=== PATIENT | female | born 1955 | race Caucasian/White ===

== ENCOUNTER 2017-10-10 10:07 | Emergency (ER) | payer MEDICAID ==
[2017-10-10 10:23] VITALS: BP 143/86
--- NOTE | 2017-10-10 10:39 | EDM.PDOC ---
ED HPI GENERAL MEDICAL PROBLEM - General Chief Complaint: Neuro Symptoms/Deficits Stated Complaint: MEDICAL VIA NORTH Time Seen by Provider: 10/10/17 10:26 Source of Information: Reports: Patient, Family, RN Notes Reviewed History Limitations: Reports: No Limitations - History of Present Illness INITIAL COMMENTS - FREE TEXT/NARRATIVE: 61-year-old female presents emergency department day complaint of left-sided weakness, this is been intermittent for her lasted a couple of minutes and then resolved but this is her third event since Saturday where she had left-sided weakness, left leg still feels heavy and tingling, no other symptoms at this time she does have a history of DVT of which she was on Coumadin for 6 months back in 2013 ABCD2 score is 3 low risk - Related Data Allergies Allergy/AdvReac Type Severity Reaction Status Date / Time codeine Allergy Rash Verified 07/20/16 06:59 penicillin Allergy Rash Verified 07/20/16 06:59 erythromycin base AdvReac Nausea Verified 07/20/16 06:59 tetracycline AdvReac Nausea Verified 07/20/16 06:59 Home Meds: Home Meds Multivitamin [Multivitamins] 1 each PO DAILY 07/19/15 [History] Acetaminophen [Tylenol Extra Strength] 1 - 2 tab PO Q6H PRN 07/18/16 [History] Vitamin B Complex [B Complex] 1 tab PO DAILY 07/18/16 [History] Lisinopril/Hydrochlorothiazide [Lisinopril-Hctz 10-12.5 mg Tab] 1 tab PO DAILY 10/10/17 [History] buPROPion HCl [Wellbutrin SR] 150 mg PO BID 10/10/17 [History] Past Medical History HEENT History: Reports: Impaired Vision Cardiovascular History: Reports: Blood Clots/VTE/DVT, Hypertension Other Cardiovascular History: DVT in 2012 with coumadin therapy Gastrointestinal History: Reports: Diverticulosis, Other (See Below) Other Gastrointestinal History: hernia repair scheduled for 07-20-2016 with RW Genitourinary History: Reports: UTI, 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 Neurological History: Reports: Headaches, Chronic, Migraines Psychiatric History: Reports: Depression Hematologic History: Reports: Anemia, Blood Transfusion(s), Iron Deficiency - Infectious Disease History Infectious Disease History: Reports: Chicken Pox, Measles - Past Surgical History GI Surgical History: Reports: Colonoscopy, Hernia Repair/Other, Small Bowel, Other (See Below) Female Surgical History: Reports: Hysterectomy Musculoskeletal Surgical History: Reports: Ganglion Cyst, Other (See Below) Social & Family History - Tobacco Use Smoking Status *Q: Current Every Day Smoker Years of Tobacco use: 40 Packs/Tins Daily: 1 Used Tobacco, but Quit: No Second Hand Smoke Exposure: Yes - Caffeine Use Caffeine Use: Reports: Coffee - Alcohol Use Days Per Week of Alcohol Use: 4 Number of Drinks Per Day: 2 Total Drinks Per Week: 8 - Recreational Drug Use Recreational Drug Use: No ED ROS GENERAL - Review of Systems Review Of Systems: See Below Constitutional: Reports: No Symptoms HEENT: Reports: No Symptoms Respiratory: Reports: No Symptoms Cardiovascular: Reports: No Symptoms GI/Abdominal: Reports: No Symptoms : Reports: No Symptoms Musculoskeletal: Reports: No Symptoms Skin: Reports: No Symptoms Neurological: Reports: Tingling, Difficulty Walking, Weakness ED EXAM, NEURO - Physical Exam Exam: See Below Text/Narrative:: General: Female, not in any distress, alert and oriented x3 HEENT: head is atraumatic normocephalic, eyes pupils equal round reactive to light, sclera clear no conjunctivitis appreciated, extraocular eye movements intact. Ears tympanic membranes clear and [place]es[place] landmarks and light reflex are present bilaterally canals are clear. Nose no septal deviation, nares are clear, no blood present. Mouth mucosa is moist and pink no erythema or exudate noted in soft palate, tongue is midline uvula is midline, dentition is intact. Neck: Supple no thyromegaly no tracheal deviation. Nodes: Cervical nodes subclavicular nodes nontender no palpable lymphadenopathy noted. Lungs: clear to auscultation bilaterally with symmetrical respirations, no adventitious noise appreciated. CV: Regular rate and rhythm S1 and S2 appreciated no murmurs rubs or gallops noted. Abdomen: Soft, nontender, no palpable masses or organomegaly appreciated, no distention no guarding bowel sounds are present, . Neuro: Cranial nerves II through XII grossly intact graham 5 x 5 in upper and lower extremities no focal neurologic deficit Skin: Warm and dry, intact Extremities: No lower extremity edema appreciated, Course - Vital Signs Last Recorded V/S: Last Vital Signs Temp 98.4 F 10/10/17 10:24 Pulse 79 10/10/17 10:24 Resp 14 10/10/17 10:24 BP 143/86 H 10/10/17 10:24 Pulse Ox - Orders/Labs/Meds Orders: Active Orders 24 hr Category Date Time Status EKG Documentation Completion [RC] ASDIRECTED Care 10/10/17 10:36 Active EKG 12 Lead [EK] Urgent Ther 10/10/17 10:35 Ordered Labs: Laboratory Tests 10/10/17 10/10/17 Range/Units 10:50 10:50 WBC 7.6 (4.5-11.0) K/uL RBC 4.48 (3.30-5.50) M/uL Hgb 12.9 D (12.0-15.0) g/dL Hct 40.0 (36.0-48.0) % MCV 89 (80-98) fL MCH 29 (27-31) pg MCHC 32 (32-36) % Plt Count 304 (150-400) K/uL Neut % (Auto) 56 (36-66) % Lymph % (Auto) 33 (24-44) % [place] % (Auto) 8 H (2-6) % Eos % (Auto) 2 (2-4) % Baso % (Auto) 1 (0-1) % ESR 38 H (0-25) mm/hr Sodium 137 L (140-148) mmol/L Potassium 4.7 (3.6-5.2) mmol/L Chloride 101 (100-108) mmol/L Carbon Dioxide 28 (21-32) mmol/L Anion Gap 12.7 (5.0-14.0) mmol/L BUN 13 (7-18) mg/dL Creatinine 1.0 (0.6-1.0) mg/dL Est Cr Clr Drug Dosing 56.71 mL/min Estimated GFR (MDRD) 57 L (>60) Glucose 97 (74-106) mg/dL Calcium 9.6 D (8.5-10.1) mg/dL Total Bilirubin 0.4 (0.2-1.0) mg/dL AST 17 (15-37) U/L ALT 20 (12-78) U/L Alkaline Phosphatase 98 D (46-116) U/L Total Protein 7.9 (6.4-8.2) g/dL Albumin 3.8 (3.4-5.0) g/dL Globulin 4.1 H (2.3-3.5) g/dL Albumin/Globulin Ratio 0.9 L (1.2-2.2) Departure - Departure Time of Disposition: 12:45 Disposition: Home, Self-Care 01 Condition: Good Clinical Impression: Left-sided weakness - Discharge Information Referrals: PCP,None [Primary Care Provider] - Forms: ED Department Discharge Additional Instructions: recommend starting an aspirin, continue with your blood pressure medications, given appointment with your primary care provider October 14 at noon, recommend further evaluation including MRI and carotid ultrasound, please call return to the emergency department with worsening of symptoms - My Orders Last 24 Hours: My Active Orders 10/10/17 10:35 EKG 12 Lead [EK] Urgent 10/10/17 10:36 EKG Documentation Completion [RC] ASDIRECTED - Assessment/Plan Last 24 Hours: My Active Orders 10/10/17 10:35 EKG 12 Lead [EK] Urgent 10/10/17 10:36 EKG Documentation Completion [RC] ASDIRECTED Plan: Assessment Acuity = acute Site and laterality = left-sided weakness with complete resolution of symptoms Etiology = unclear etiology Manifestations = none Location of injury = Home Lab values = CBC, CMP unremarkable ESR mildly elevated 38, EKG demonstrates a sinus rhythm CT scan of the head is negative for any acute abnormality, review echocardiogram done on Saturday shows ejection fraction 60% with moderate hypertrophy of the left ventricle Plan I did review lab work CT scan echocardiogram results with her I was able to secure an appointment with her primary care provider October 14 at noon 3 days from now, will start an aspirin her ABCD square score was low, recommend further evaluation with an MRI no appointments were available in the next 2 days as well as carotid ultrasound to complete the workup for TIA, Patient was in agreement with the plan all questions were answered, they were instructed to return to the emergency department or call for worsening symptoms. This note was dictated using [employer] voice recognition software please call with any questions.
--- NOTE | 2017-10-10 11:49 | CT ---
Head wo Cont Total DLP 732 mGycm. INDICATION: Intermittent left-sided weakness COMPARISON: None. FINDINGS: No acute intracranial hemorrhage, mass, or edema. Minimal low attenuation in the periventri cular white matter is nonspecific. Ventricular size is within normal limits. Soft tissues are unremar kable. Remainder negative. IMPRESSION: No acute intracranial abnormality.
== END 2017-10-10 12:57 | disposition home or self-care (01) ==
LOC: JP.ED 10:07
DX: R53.1 Weakness (principal); I10 Essential (primary) hypertension; F32.9 Major depressive disorder, single episode, unspecified; F17.210 Nicotine dependence, cigarettes, uncomplicated; Z79.899 Other long term (current) drug therapy; Z88.0 Allergy status to penicillin; Z88.1 Allergy status to other antibiotic agents; Z88.5 Allergy status to narcotic agent
CPT/HCPCS: 36415; 70450; 70450-26; 80053; 85025; 85651; 93005; 99285-25

== ENCOUNTER 2017-11-02 09:45 | Emergency (ER) | payer MEDICAID ==
--- NOTE | 2017-11-02 10:25 | EDM.PDOC ---
ED HPI GENERAL MEDICAL PROBLEM - General Chief Complaint: Respiratory Problem Stated Complaint: MEDICAL VIA NORTH Time Seen by Provider: 11/02/17 10:05 Source of Information: Reports: Patient, EMS, Family History Limitations: Reports: No Limitations - History of Present Illness INITIAL COMMENTS - FREE TEXT/NARRATIVE: 61-year-old female who is been developing some cold symptoms over the past couple of days had a coughing spell that "wouldn't quit", felt like her throat was tightening and then became short of breath and couldn't breathe. EMS was called. Because of the significant appearance of the patient at albuterol nebulizer along with CPAP was given to the patient initially. On arrival to the emergency room no further treatment was needed. O2 saturations were 100%, the patient was still anxious and had a slight stridorous sound to her breathing. She denied any pain, she may have had some intermittent low-grade fevers over the past several days along with a cough and runny nose. Symptoms started fairly suddenly this morning after company arrived which made her anxious. Onset: Sudden Severity: Moderate Associated Symptoms: Reports: Cough, Fever/Chills, Shortness of Breath. 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 (see below) Other Treatments GANG VIBRATOR OPERATOR: ALBUTEROL NEB PER EMS - Related Data Allergies Allergy/AdvReac Type Severity Reaction Status Date / Time aspirin Allergy Hives Verified 11/02/17 10:03 codeine Allergy Rash Verified 11/02/17 10:03 penicillin Allergy Rash Verified 11/02/17 10:03 erythromycin base AdvReac Nausea Verified 11/02/17 10:03 tetracycline AdvReac Nausea Verified 11/02/17 10:03 Home Meds: Home Meds Multivitamin [Multivitamins] 1 each PO DAILY 07/19/15 [History] Acetaminophen [Tylenol Extra Strength] 1 - 2 tab PO Q6H PRN 07/18/16 [History] Vitamin B Complex [B Complex] 1 tab PO DAILY 07/18/16 [History] Lisinopril/Hydrochlorothiazide [Lisinopril-Hctz 10-12.5 mg Tab] 1 tab PO DAILY 10/10/17 [History] buPROPion HCl [Wellbutrin SR] 150 mg PO BID 10/10/17 [History] Past Medical History HEENT History: Reports: Impaired Vision Cardiovascular History: Reports: Blood Clots/VTE/DVT, Hypertension Other Cardiovascular History: DVT in 2013 with coumadin therapy Gastrointestinal History: Reports: Diverticulosis, Other (See Below) Other Gastrointestinal History: hernia repair scheduled for 07-20-2016 with RW Genitourinary History: Reports: UTI, 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 Neurological History: Reports: Headaches, Chronic, Migraines Psychiatric History: Reports: Depression Hematologic History: Reports: Anemia, Blood Transfusion(s), Iron Deficiency - Infectious Disease History Infectious Disease History: Reports: Chicken Pox, Measles - Past Surgical History GI Surgical History: Reports: Colonoscopy, Hernia Repair/Other, Small Bowel, Other (See Below) Female Surgical History: Reports: Hysterectomy Musculoskeletal Surgical History: Reports: Ganglion Cyst, Other (See Below) Social & Family History - Tobacco Use Smoking Status *Q: Unknown Ever Smoked Years of Tobacco use: 40 Packs/Tins Daily: 1 Used Tobacco, but Quit: No Second Hand Smoke Exposure: Yes - Caffeine Use Caffeine Use: Reports: Coffee - Alcohol Use Days Per Week of Alcohol Use: 4 Number of Drinks Per Day: 2 Total Drinks Per Week: 8 - Recreational Drug Use Recreational Drug Use: No ED ROS GENERAL - Review of Systems Review Of Systems: See Below Constitutional: Reports: Fever, Chills, Malaise. Denies: Weakness HEENT: Reports: Rhinitis Respiratory: Reports: Shortness of Breath, Cough. Denies: Sputum GI/Abdominal: Denies: Abdominal Pain, Nausea, Vomiting Skin: Reports: No Symptoms Neurological: Denies: Headache Psychiatric: Reports: Anxiety ED EXAM, GENERAL - Physical Exam Exam: See Below Exam Limited By: No Limitations General Appearance: Alert, No Apparent Distress, Anxious Nose: Clear Rhinorrhea Throat/Mouth: Normal Inspection Respiratory/Chest: No Respiratory Distress, Lungs Clear Cardiovascular: Regular Rate, Rhythm Neurological: Alert, Oriented Psychiatric: Anxious Skin Exam: Warm, Dry Course - Vital Signs Last Recorded V/S: Last Vital Signs Temp 98.4 F 11/02/17 11:19 Pulse 78 11/02/17 10:04 Resp 15 11/02/17 11:19 BP 130/65 11/02/17 11:19 Pulse Ox 97 11/02/17 11:19 - Orders/Labs/Meds Orders: Active Orders 24 hr Category Date Time Status Chest 2V [CR] Routine Exams 11/02/17 10:18 Taken - Re-Assessments/Exams Free Text/Narrative Re-Assessment/Exam: 11/02/17 10:25 Influenza antigens were obtained as well as a two-view chest x-ray. 11/02/17 11:04 Influenza antigens were negative. Chest x-ray was normal. Over the next 30 minutes the patient calm down and normalized. No further treatment was necessary. Departure - Departure Time of Disposition: 11:20 Disposition: Home, Self-Care 01 Condition: Good Clinical Impression: Croup - Discharge Information Instructions: Shortness of Breath, [id number] Referrals: PCP,None [Ordering Only Provider] - Forms: ED Department Discharge Care Plan Goals: Rest today, continue your regular medications and increase activity as tolerated. Try cool air if symptoms recur and return to the emergency room if not improving. - My Orders Last 24 Hours: My Active Orders 11/02/17 10:18 Chest 2V [CR] Routine - Assessment/Plan Last 24 Hours: My Active Orders 11/02/17 10:18 Chest 2V [CR] Routine
[2017-11-02 11:20] VITALS: BP 130/65
--- NOTE | 2017-11-05 08:47 | CR ---
Chest 2V INDICATION: dyspnea COMPARISON: 04/18/2015 FINDINGS: Two views. Heart size normal. Lungs are clear. No infiltrate or pleural effusion. No sig ns of pulmonary edema. IMPRESSION: Negative chest.
== END 2017-11-02 11:21 | disposition home or self-care (01) ==
LOC: JP.ED 09:45
DX: J05.0 Acute obstructive laryngitis [croup] (principal); I10 Essential (primary) hypertension; Z88.6 Allergy status to analgesic agent; Z88.5 Allergy status to narcotic agent; Z88.0 Allergy status to penicillin; Z88.1 Allergy status to other antibiotic agents; Z79.899 Other long term (current) drug therapy
CPT/HCPCS: 71020; 71020-26; 87804; 99285

== ENCOUNTER 2018-11-14 19:00 | Inpatient (IN) | payer MEDICAID ==
--- NOTE | 2018-11-14 19:18 | EDM.PDOC ---
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 Testing is planned, however today she started draining copious purulent material from her abdomen. Her pain is persistent but stable. Onset: Sudden (Drainage started suddenly within the last hour) abd incision Pain Score (Numeric/FACES): 5 - Related Data Allergies Allergy/AdvReac Type Severity Reaction Status Date / Time codeine Allergy Rash Verified 11/14/18 19:13 hydrocodone Allergy Rash Verified 11/14/18 19:13 penicillin Allergy Rash Verified 11/14/18 19:13 erythromycin base AdvReac Nausea Verified 11/14/18 19:13 tetracycline AdvReac Nausea Verified 11/14/18 19:13 Home Meds: Home Meds Acetaminophen [Tylenol Extra Strength] 1 - 2 tab PO Q6H PRN 07/18/16 [History] Carvedilol [Coreg] 3.125 mg PO BID 09/17/18 [History] Clopidogrel [Plavix] 75 mg PO DAILY 09/17/18 [History] amLODIPine Besylate [Norvasc] 10 mg PO DAILY 09/17/18 [History] atorvaSTATin [Lipitor] 40 mg PO BEDTIME 09/17/18 [History] Aspirin [Halfprin] 81 mg PO BEDTIME 09/19/18 [History] Ibuprofen [Advil] 400 mg PO ASDIRECTED PRN 10/08/18 [History] HYDROmorphone [Dilaudid] 2 - 4 mg PO Q4H PRN #40 tablet 10/20/18 [Rx] Ondansetron [Zofran ODT] 4 mg PO Q4H PRN #30 tab.dis 10/20/18 [Rx] ALPRAZolam [Alprazolam] 0.25 mg PO ASDIRECTED 11/14/18 [History] Past Medical History HEENT History: Reports: Impaired Vision Cardiovascular History: Reports: Blood Clots/VTE/DVT, CAD, Hypertension Other Cardiovascular History: DVT in 2012 with coumadin therapy.Presently taking plavix off x 7 days. 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 Neurological History: Reports: TIA Psychiatric History: Reports: Depression Hematologic History: Reports: Anemia, Blood Transfusion(s), Iron Deficiency Dermatologic History: Reports: None Other Dermatologic History: right rash - Infectious Disease History Infectious Disease History: Reports: Chicken Pox, Measles - Past Surgical History HEENT Surgical History: Reports: None Cardiovascular Surgical History: Reports: None Respiratory Surgical History: Reports: None GI Surgical History: Reports: Colonoscopy, Hernia Repair/Other, Small Bowel, Other (See Below) Female Surgical History: Reports: Section, Hysterectomy Musculoskeletal Surgical History: Reports: Ganglion Cyst Social & Family History - Family History Family Medical History: Noncontributory - Caffeine Use Caffeine Use: Reports: Coffee, Soda ED ROS GENERAL - Review of Systems Review Of Systems: See Below Constitutional: Denies: Fever, Malaise, Decreased Appetite (Appetite is good) HEENT: Reports: No Symptoms Respiratory: Denies: Shortness of Breath Cardiovascular: Denies: Chest Pain GI/Abdominal: Reports: Abdominal Pain. Denies: Nausea, Vomiting Skin: Reports: Pallor Neurological: Denies: Headache ED EXAM, GI/ABD - Physical Exam Exam: See Below Exam Limited By: No Limitations General Appearance: Alert, No Apparent Distress (Looks uncomfortable but not distressed) Eyes: Bilateral: Pale Conjunctiva Neck: Supple Respiratory/Chest: Lungs Clear Cardiovascular: Regular Rate, Rhythm GI/Abdominal Exam: Other (Several drainage tubes are present, the midline incision is draining copious yellowish malodorous material. She is tender to palpation across the upper abdomen.) Extremities: Other (Superficial excoriations on the lower legs). No: Pedal Edema Neurological: Alert, Oriented Course - Vital Signs Last Recorded V/S: Last Vital Signs Temp 99.3 F 11/14/18 21:02 Pulse 79 11/14/18 21:02 Resp 16 11/14/18 21:02 BP 127/67 11/14/18 21:02 Pulse Ox 96 11/14/18 21:14 - Orders/Labs/Meds Orders: Active Orders 24 hr Category Date Time Status Lactated Ringers [Ringers, Lactated] 1,000 ml Med 11/14/18 19:45 Active IV ASDIRECTED Medication Orders Diphenhydramine HCl (Benadryl) 25 - 50 mg IVPUSH Q4H PRN PRN Reason: Itching Last Admin: 11/14/18 21:52 Dose: 25 mg Hydromorphone HCl (Dilaudid Manager Customer Service 15 Mg In Ns 30 Ml) 0 mg IV ASDIRECTED PRN; Protocol PRN Reason: Pain Last Admin: 11/14/18 21:02 Dose: 15 mg Lactated Ringer's (Ringers, Lactated) 1,000 mls @ 250 mls/hr IV ASDIRECTED CURRY Last Admin: 11/14/18 19:57 Dose: 250 mls/hr Dextrose/Lactated Ringer's (Dextrose 5%-Lactated Ringers) 1,000 mls @ 250 mls/ hr IV ASDIRECTED CURRY Last Admin: 11/14/18 21:01 Dose: 250 mls/hr Lorazepam (Ativan) 0.5 mg IVPUSH Q2H PRN PRN Reason: Anxiety Naloxone HCl (Narcan) 0.4 mg IVPUSH Q2M PRN PRN Reason: Respiratory Distress Labs: Laboratory Tests 11/14/18 11/14/18 Range/Units 19:49 19:49 WBC 10.2 (4.5-11.0) K/uL RBC 4.17 (3.30-5.50) M/uL Hgb 11.6 L (12.0-15.0) g/dL Hct 35.6 L (36.0-48.0) % MCV 85 (80-98) fL MCH 28 (27-31) pg MCHC 33 (32-36) % Plt Count 463 H (150-400) K/uL Neut % (Auto) 56 (36-66) % Lymph % (Auto) 33 (24-44) % [place] % (Auto) 7 H (2-6) % Eos % (Auto) 3 (2-4) % Baso % (Auto) 1 (0-1) % Sodium 137 L (140-148) mmol/L Potassium 3.4 L (3.6-5.2) mmol/L Chloride 98 L (100-108) mmol/L Carbon Dioxide 27 (21-32) mmol/L Anion Gap 15.4 H (5.0-14.0) mmol/L BUN 16 (7-18) mg/dL Creatinine 0.8 (0.6-1.0) mg/dL Est Cr Clr Drug Dosing 67.29 mL/min Estimated GFR (MDRD) > 60 (>60) Glucose 119 H (74-106) mg/dL Calcium 9.0 (8.5-10.1) mg/dL Total Bilirubin 0.3 (0.2-1.0) mg/dL AST 15 (15-37) U/L ALT 20 (12-78) U/L Alkaline Phosphatase 107 (46-116) U/L Total Protein 7.6 (6.4-8.2) g/dL Albumin 2.7 L (3.4-5.0) g/dL Globulin 4.9 H (2.3-3.5) g/dL Albumin/Globulin Ratio 0.6 L (1.2-2.2) Meds: Medications Generic Name Dose Route Start Last Admin Trade Name Freq PRN Reason Stop Dose Admin Diphenhydramine HCl 25 - 50 mg 11/14/18 21:32 11/14/18 21:52 Benadryl IVPUSH 25 mg Q4H PRN Administration Itching Hydromorphone HCl 0 mg 11/14/18 20:14 11/14/18 21:02 Dilaudid Manager Customer Service 15 Mg In Ns 30 Ml IV 15 mg ASDIRECTED PRN Administration Pain Protocol Lactated Ringer's 1,000 mls @ 250 mls/hr 11/14/18 19:45 11/14/18 19:57 Ringers, Lactated IV 250 mls/hr ASDIRECTED CURRY Administration Dextrose/Lactated Ringer's 1,000 mls @ 250 mls/hr 11/14/18 20:15 11/14/18 21: 01 Dextrose 5%-Lactated Ringers IV 250 mls/hr ASDIRECTED CURRY Administration Lorazepam 0.5 mg 11/14/18 21:31 Ativan IVPUSH Q2H PRN Anxiety Naloxone HCl 0.4 mg 11/14/18 20:14 Narcan IVPUSH Q2M PRN Respiratory Distress 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 Medications Generic Name Dose Route Start Last Admin Trade Name Hu PRN Reason Stop Dose Admin Diphenhydramine HCl 25 mg 11/14/18 19:53 11/14/18 20:01 Benadryl IVPUSH 11/14/18 19:54 25 mg ONETIME ONE Administration Hydromorphone HCl 0.5 mg 11/14/18 19:45 11/14/18 20:06 Dilaudid IVPUSH 11/14/18 19:46 0.5 mg ONETIME ONE Administration - Re-Assessments/Exams Free Text/Narrative Re-Assessment/Exam: 11/14/18 19:44 Discussed her case with Dr. Garcia, he recommended admission with fluids, pain control, and frequent dressing changes. CBC CMP was obtained. 11/14/18 20:25 CBC and CMP were reassuring. Patient was admitted to Dr. Garcia's service. 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
[2018-11-14] MEDS ORDERED: Lactated Ringers 1,000 ML IV SCH (19:45)
[2018-11-14] MEDS ORDERED: HYDROmorphone 0.5 MG/0.5 ML Syringe IVPUSH ONE (19:45)
[2018-11-14] MEDS ORDERED: diphenhydrAMINE 50 MG/ML SDV IVPUSH ONE (19:53)
[2018-11-14] MEDS ORDERED: HYDROmorphone/Normal Saline 15 MG/30 ML PCA IV PRN (20:14)
[2018-11-14] MEDS ORDERED: Naloxone 0.4 MG/ML SDV IVPUSH PRN (20:14)
[2018-11-14] MEDS: Dextrose 5%-Lactated Ringers 1,000 ML IV SCH (21:01)
[2018-11-14] MEDS ORDERED: LORazepam 2 MG/ML SDV IVPUSH PRN (21:31)
[2018-11-14] MEDS: diphenhydrAMINE 50 MG/ML SDV IVPUSH PRN (21:52)
[2018-11-15] MEDS: Dextrose 5%-Lactated Ringers 1,000 ML IV SCH ×4 (00:55→21:29)
[2018-11-15] MEDS ORDERED: Acetaminophen 500 MG Tab PO PRN (07:58)
[2018-11-15] MEDS ORDERED: Ondansetron 4 MG Tab.DIS PO PRN (07:59)
[2018-11-15] MEDS: diphenhydrAMINE 50 MG/ML SDV IVPUSH PRN ×3 (08:31→18:42)
[2018-11-15] MEDS: Potassium Chloride 20 MEQ Tab.ER PO SCH ×3 (09:11→17:16)
[2018-11-15] MEDS: amLODIPine 10 MG Tab PO SCH (09:11)
[2018-11-15] MEDS: Clopidogrel 75 MG Tab PO SCH (09:12)
[2018-11-15] MEDS: Aspirin 81 MG Tab.EC PO SCH (09:12)
[2018-11-15] MEDS: Carvedilol 3.125 MG Tab PO SCH ×2 (09:12→17:16)
[2018-11-15] MEDS: ALPRAZolam 0.25 MG Tab PO PRN ×3 (10:45→23:55)
[2018-11-15] MEDS: atorvaSTATin 20 MG Tab PO SCH (20:56)
[2018-11-16] MEDS: Dextrose 5%-Lactated Ringers 1,000 ML IV SCH (06:14)
[2018-11-16] MEDS ORDERED: Albuterol/Ipratropium 3.0-0.5 MG/3 ML Neb Soln NEB STA (06:48)
[2018-11-16] MEDS: Carvedilol 3.125 MG Tab PO SCH ×2 (07:00→18:02)
[2018-11-16] MEDS ORDERED: Lidocaine 1% with EPINEPHrine 1:100,000 50 ML MDV ONE (07:10)
[2018-11-16] MEDS ORDERED: Bupivacaine 0.5% 30 ML SDV ONE (07:10)
[2018-11-16] MEDS ORDERED: Propofol 200 MG/20 ML SDV ONE (07:59)
[2018-11-16] MEDS ORDERED: fentaNYL 100 MCG/2 ML SDV ONE (07:59)
[2018-11-16] MEDS ORDERED: Midazolam 1 MG/ML 2 ML SDV ONE (08:00)
[2018-11-16] MEDS: Aspirin 81 MG Tab.EC PO SCH (09:06)
[2018-11-16] MEDS: Clopidogrel 75 MG Tab PO SCH (09:07)
[2018-11-16] MEDS: amLODIPine 10 MG Tab PO SCH (09:07)
[2018-11-16] MEDS: Magnesium Sulfate/Water 2 GM in Premix Bag 1 BAG IV SCH ×3 (10:37→21:00)
[2018-11-16] MEDS: Potassium Chloride 20 MEQ Tab.ER PO SCH ×3 (10:38→18:03)
[2018-11-16] MEDS: diphenhydrAMINE 50 MG/ML SDV IVPUSH PRN ×3 (10:52→23:06)
[2018-11-16] MEDS: ALPRAZolam 0.25 MG Tab PO PRN ×2 (12:58→19:37)
[2018-11-16] MEDS: atorvaSTATin 20 MG Tab PO SCH (20:54)
[2018-11-17] MEDS: Magnesium Sulfate/Water 2 GM in Premix Bag 1 BAG IV SCH (03:32)
[2018-11-17] MEDS: diphenhydrAMINE 50 MG/ML SDV IVPUSH PRN (07:29)
[2018-11-17] MEDS ORDERED: HYDROmorphone 2 MG Tab PO PRN (07:35)
[2018-11-17 08:34] VITALS: BP 108/32
[2018-11-17] MEDS: Aspirin 81 MG Tab.EC PO SCH (08:34)
[2018-11-17] MEDS: Carvedilol 3.125 MG Tab PO SCH (08:34)
[2018-11-17] MEDS: amLODIPine 10 MG Tab PO SCH (08:34)
[2018-11-17] MEDS: Clopidogrel 75 MG Tab PO SCH (08:36)
--- NOTE | 2018-11-17 09:21 | DISCH ---
ADMISSION DIAGNOSES: 1. Fistula of intestine with excessive drainage. 2. Lumbar disk disease. 3. Chronic obstructive pulmonary disease. 4. Depression. 5. History of transient ischemic attack. 6. Diverticulosis. DISCHARGE DIAGNOSES: Small bowel fistulogram and revision of the jejunostomy tube position for a small bowel fistula with migrated jejunostomy tube. HISTORY: Eleonora Batista presented to the emergency room on 11/14/2018 for severe abdominal pain and increasing drainage from her abdominal fistula. After preoperative evaluation and discussion of possible risks and possible complications, she wished to proceed with surgical procedure. HOSPITAL COURSE: Eleonora had her surgery on 11/16/2018. She had no operative complications. On postoperative day #2, 11/17/2018, she was ready to be discharged to home with a wound VAC over that area. OBJECTIVE: GENERAL: Eleonora is a 62-year-old female. VITAL SIGNS: Height is 5 feet 4 inches and weight is 147 pounds. Temperature is 95.3, pulse is 75, respirations are 16, and blood pressure is 138/69. HEENT: Negative. NECK: Supple. HEART: Regular rate and rhythm. PULMONARY: Lungs are clear. ABDOMEN: Bello-Sanchez drains are intact. ASYE drain #1 drained out of 51, and AYSE drain #2 drained out 90. She does have an ostomy bag over that opened fistula, it drained zero. She will be having a wound VAC placed on that area. EXTREMITIES: Without peripheral edema. DISPOSITION: Discharged to home with continuation of Home Health Care. CONDITION: Stable. DISCHARGE MEDICATIONS: Resume home medications of 1. Etizolam 0.25 mg one p.r.n. every 6 hours. 2. Tylenol Extra Strength 1 to 2 tablets every six hours p.r.n. pain. 3. Aspirin 81 mg oral at bedtime. 4. Carvedilol/Coreg 3.125 mg oral twice daily. 5. Plavix 75 mg oral daily. 6. Dilaudid, she states she has enough at home or she will call in if she has any increase in pain. 7. Ibuprofen 400 mg as directed p.r.n. pain. 8. Zofran ODT 4 mg every four hours p.r.n. nausea and vomiting. 9. Norvasc 10 mg oral daily. 10.Lipitor 10 mg oral at bedtime. DISCHARGE FOLLOWUP: Appointment with Srikanth Garcia MD, at [facility] on 11/19/2018 at 8 a.m. to have wound VAC changed and for an appointment. DISCHARGE DIET: Usual diet as tolerated. Drink 8 to 10 glasses of water a day. DISCHARGE ACTIVITY: Other Activity: No lifting greater than 10 pounds for six weeks. Driving: Do not drive while on pain medication. Shower/bathing, may shower. DISCHARGE INSTRUCTIONS: Notify provider if any fever, increased pain, nausea, or vomiting. Wound incision care, keep site clean and dry. Other wound: Strip, empty, drain and measure AYSE drains 4 times a day, and keep record of results and bring to clinic appointments. Use incentive spirometer 10 times every hour while awake.
--- NOTE | 2018-11-17 15:12 | PN ---
DATE OF SERVICE: 11/15/2018 The patient was admitted overnight with some increased drainage from the reopening of the fistula in the middle portion of her midline incision. We to do a fistulogram and we are planning to do that tomorrow. She does not look particularly infected at this point with normal white count and afebrile, so things appear to be reasonably well drained. The jejunostomy tube did pull in a fair bit and we will likely pull that back up snugly tomorrow, which would decrease the amount of drainage. Otherwise, her potassium is marginally low. We will give her some oral KCl today and plan to proceed with a fistulogram tomorrow. Srikanth Garcia MD /[id number]
--- NOTE | 2018-11-17 15:12 | PN ---
DATE OF SERVICE: 11/16/2018 The patient had T-max of 100.4. Vital signs have otherwise been stable. The plan will be to adjust the drain today and we will try to pull up the jejunostomy tube with the balloon inflated and more snugly against the wall of the bowel fluid and then retract the AYSE drain adjacent to the fistula perhaps a centimeter or so to try to get some distraction from that area. As discussed with the patient and , at some point, we may need to do definitive reoperation if small bowel fistula fails to close. Otherwise, continue diet today after the revision of the position of the J tube and drains. Srikanth Garcia MD /[id number]
--- NOTE | 2018-11-25 11:02 | OR ---
DATE OF PROCEDURE: 11/16/2018 PREOPERATIVE DIAGNOSIS: Small bowel fistula. POSTOPERATIVE DIAGNOSIS: Small bowel fistula. PROCEDURE: Small bowel fistulogram ([id number]). ANESTHESIA: Local plus IV sedation. INDICATION FOR PROCEDURE: This is a 62-year-old presenting with an ongoing small bowel fistula and had some drainage through a jejunostomy tube placed through the fistula to try to control the drainage as well as into a Bello-Sanchez drain that is adjacent to the actual fistula site. Plan is to proceed with a fistulogram and then adjustment of the jejunostomy tube and/or drain to try to get better seal on the fistula as well as decrease the amount of distance between the fistula and the Bello-Sanchez drain to facilitate possibly earlier closure. Potential risks including further infection, bleeding, and such were reviewed, and the patient wishes to proceed. DETAILS OF PROCEDURE: The patient was taken to the operating room and placed on the fluoroscopy table and IV sedation was administered. The abdomen was then prepped on the various tube sites and initially a 60% concentrated Renografin solution was injected into the Mcintosh catheter which was being used for the jejunostomy tube and this showed flow bidirectionally within the small bowel, but quite a bit in the way of drainage up into the area adjacent to the fistula and into the adjacent Bello-Sanchez drain. Given this, an additional 1 mL of saline was injected in the jejunostomy tube and then this was pulled up fairly snugly against the abdominal wall. The skin edges at that site were then anesthetized with 1% lidocaine and the tube then sutured there with some 3-0 Vicryl stitch. The drain itself was then moved roughly 1 cm further away from the fistula site and this was also then fixed in position with stitch after anesthetizing the skin at that level as well and dressings were applied. The patient was taken to the recovery room in satisfactory condition. There were no evident complications. Srikanth Garcia MD Job #: [id number]
== END 2018-11-17 10:48 | disposition home health service (06) | DRG 395 ==
LOC: JP.ED 19:00 → JP.MS 20:11
PROVIDERS: ADMIT Surgery; ATTEND Surgery
PROC: BW11YZZ Fluoroscopy of Abdomen and Pelvis using Other Contrast (ICD-10-PCS; principal; 2018-11-16)
DX: K63.2 Fistula of intestine (principal); I10 Essential (primary) hypertension; E87.6 Hypokalemia; I25.10 Atherosclerotic heart disease of native coronary artery without angina pectoris; Z86.718 Personal history of other venous thrombosis and embolism; Z86.73 Personal history of transient ischemic attack (TIA), and cerebral infarction without residual deficits; K57.90 Diverticulosis of intestine, part unspecified, without perforation or abscess without bleeding; J44.9 Chronic obstructive pulmonary disease, unspecified; F32.9 Major depressive disorder, single episode, unspecified; M19.90 Unspecified osteoarthritis, unspecified site; H54.7 Unspecified visual loss; Z88.1 Allergy status to other antibiotic agents; Z88.5 Allergy status to narcotic agent; Z88.0 Allergy status to penicillin; Z79.82 Long term (current) use of aspirin; M51.9 Unspecified thoracic, thoracolumbar and lumbosacral intervertebral disc disorder; I65.23 Occlusion and stenosis of bilateral carotid arteries; R32 Unspecified urinary incontinence
CPT/HCPCS: 36415; 80048; 80053; 83735; 84100; 85025; 85027; 94640; 94762; 96361; 96374; 96375; 99285-25; A9270-GY; J1170; J1200; J2060; J2250; J2704; J3010; J3475; J3490; J7042; J7120; J7620-GY

== ENCOUNTER 2018-12-11 13:06 | Emergency (ER) | payer MEDICAID ==
[2018-12-11] MEDS ORDERED: Sodium Chloride 0.9% 1,000 ML IV SCH (13:45)
[2018-12-11] MEDS ORDERED: Ondansetron 4 MG Tab.DIS PO ONE (13:49)
--- NOTE | 2018-12-11 13:55 | EDM.PDOC ---
ED HPI GENERAL MEDICAL PROBLEM - General Chief Complaint: Gastrointestinal Problem Stated Complaint: ABD PROBLEMS Time Seen by Provider: 12/11/18 13:40 Source of Information: Reports: Patient, Old Records, RN History Limitations: Reports: No Limitations - History of Present Illness INITIAL COMMENTS - FREE TEXT/NARRATIVE: 62 yo female here from home with a large amt of fecal-like drainage from a previous surgical site. Has a surgical drain in place and was seen in the clinic yesterday for increased drainage. Today had a large gush of this same fluid. No fever. Appetite OK. Is followed by Dr. Garcia for this. Here with her . Called the hospital earlier and Dr. Garcia was in surgery. Onset: Sudden Onset Date: 12/11/18 Duration: Minutes:, Waxing/Waning (less now than after the original gush of fluid. ) Location: Reports: Abdomen Quality: Reports: Other (no new pain) Severity: Moderate Improves with: Reports: Other (reduced drainage now that the large gush of fluid has passed. ) Worsens with: Reports: Other (unknown) Context: Reports: Other (See HPI) Associated Symptoms: Reports: No Other Symptoms. Denies: Fever/Chills, Nausea/ Vomiting Treatments OPERATOR: Reports: Other (see below) (Changed dressing) Abdomen Pain Score (Numeric/FACES): 3 - Related Data Allergies Allergy/AdvReac Type Severity Reaction Status Date / Time codeine Allergy Rash Verified 12/11/18 13:29 hydrocodone Allergy Rash Verified 12/11/18 13:29 penicillin Allergy Rash Verified 12/11/18 13:29 erythromycin base AdvReac Nausea Verified 12/11/18 13:29 tetracycline AdvReac Nausea Verified 12/11/18 13:29 Home Meds: Home Meds Acetaminophen [Tylenol Extra Strength] 1 - 2 tab PO Q6H PRN 07/18/16 [History] Carvedilol [Coreg] 3.125 mg PO BID 09/17/18 [History] Clopidogrel [Plavix] 75 mg PO DAILY 09/17/18 [History] amLODIPine Besylate [Norvasc] 10 mg PO DAILY 09/17/18 [History] atorvaSTATin [Lipitor] 40 mg PO BEDTIME 09/17/18 [History] Aspirin [Halfprin] 81 mg PO BEDTIME 09/19/18 [History] Ibuprofen [Advil] 400 mg PO ASDIRECTED PRN 10/08/18 [History] HYDROmorphone [Dilaudid] 2 - 4 mg PO Q4H PRN #40 tablet 10/20/18 [Rx] Ondansetron [Zofran ODT] 4 mg PO Q4H PRN #30 tab.dis 10/20/18 [Rx] ALPRAZolam [Alprazolam] 0.25 mg PO ASDIRECTED 11/14/18 [History] Past Medical History HEENT History: Reports: Impaired Vision Cardiovascular History: Reports: Blood Clots/VTE/DVT, CAD, Hypertension Other Cardiovascular History: DVT in 2012 with coumadin therapy.Presently taking plavix off x 7 days. 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 Neurological History: Reports: TIA Psychiatric History: Reports: Depression Hematologic History: Reports: Anemia, Blood Transfusion(s), Iron Deficiency Dermatologic History: Reports: None Other Dermatologic History: right rash - Infectious Disease History Infectious Disease History: Reports: Chicken Pox, Measles - Past Surgical History HEENT Surgical History: Reports: None Cardiovascular Surgical History: Reports: None Respiratory Surgical History: Reports: None GI Surgical History: Reports: Colonoscopy, Hernia Repair/Other, Small Bowel, Other (See Below) Other GI Surgeries/Procedures: very eventful hernia repair Female Surgical History: Reports: Section, Hysterectomy Musculoskeletal Surgical History: Reports: Ganglion Cyst Social & Family History - Family History Family Medical History: Noncontributory - Tobacco Use Smoking Status *Q: Never Smoker - Caffeine Use Caffeine Use: Reports: Coffee - Recreational Drug Use Recreational Drug Use: No ED ROS GENERAL - Review of Systems Review Of Systems: See Below Constitutional: Reports: No Symptoms HEENT: Reports: No Symptoms Respiratory: Reports: No Symptoms Cardiovascular: Reports: No Symptoms GI/Abdominal: Reports: Other (Fecal-like drainage from surgical wound.) : Reports: No Symptoms Musculoskeletal: Reports: No Symptoms Skin: Reports: No Symptoms Neurological: Reports: No Symptoms ED EXAM, GI/ABD - Physical Exam Exam: See Below Exam Limited By: No Limitations General Appearance: Alert, WD/WN, No Apparent Distress Eyes: Bilateral: Normal Appearance Ears: Normal External Exam, Normal Canal, Hearing Grossly Normal Nose: Normal Inspection, No Blood Throat/Mouth: Normal Inspection, Normal Oropharynx, Normal Voice, No Airway Compromise Head: Atraumatic, Normocephalic Neck: Normal Inspection, Non-Tender Respiratory/Chest: No Respiratory Distress, Lungs Clear, Normal Breath Sounds, No Accessory Muscle Use Cardiovascular: Regular Rate, Rhythm, No Edema GI/Abdominal Exam: Normal Bowel Sounds, Soft, Non-Tender, No Distention, Other ( brownish drainage from abdominal surgical wound.). No: Tender Back Exam: Normal Inspection. No: CVA Tenderness (R), CVA Tenderness (L) Extremities: Normal Inspection, Normal Range of Motion, Non-Tender, No Pedal Edema Neurological: Alert, Oriented, CN II-XII Intact, Normal Cognition, No Motor/ Sensory Deficits Psychiatric: Normal Affect, Normal Mood Skin Exam: Warm, Dry, Intact, Normal Color, No Rash Course - Vital Signs Text/Narrative:: Dr. Garcia called @ 1600h Last Recorded V/S: Last Vital Signs Temp 35.6 C 12/11/18 13:29 Pulse 65 12/11/18 15:17 Resp 16 12/11/18 15:17 BP 137/63 12/11/18 15:17 Pulse Ox 95 12/11/18 15:17 - Orders/Labs/Meds Orders: Active Orders 24 hr Category Date Time Status Abdomen Pelvis wo Cont [CT] Stat Exams 12/11/18 13:38 Taken Sodium Chloride 0.9% [Normal Saline] 1,000 ml Med 12/11/18 13:45 Active IV ASDIRECTED Medication Orders Sodium Chloride (Normal Saline) 1,000 mls @ 500 mls/hr IV ASDIRECTED CURRY Last Admin: 12/11/18 14:34 Dose: 500 mls/hr Labs: Laboratory Tests 12/11/18 12/11/18 12/11/18 Range/Units 13:40 13:54 14:08 WBC 10.6 (4.5-11.0) K/uL RBC 3.37 (3.30-5.50) M/uL Hgb 9.3 L (12.0-15.0) g/dL Hct 29.8 L (36.0-48.0) % MCV 88 (80-98) fL MCH 28 (27-31) pg MCHC 31 L (32-36) % Plt Count 374 (150-400) K/uL Sodium 138 L (140-148) mmol/L Potassium 3.5 L (3.6-5.2) mmol/L Chloride 102 (100-108) mmol/L Carbon Dioxide 26 (21-32) mmol/L Anion Gap 13.5 (5.0-14.0) mmol/L BUN 15 D (7-18) mg/dL Creatinine 0.7 (0.6-1.0) mg/dL Est Cr Clr Drug Dosing 80.01 mL/min Estimated GFR (MDRD) > 60 (>60) Glucose 107 H (74-106) mg/dL Calcium 8.9 (8.5-10.1) mg/dL Urine Color Urine Appearance Clear Urine pH 5.0 (4.5-8.0) Ur Specific [place] 1.005 L (1.008-1.030) Urine Protein Negative (NEGATIVE) mg/dL Urine Glucose (UA) Normal (NEGATIVE) mg/dL Urine Ketones Negative (NEGATIVE) mg/dL Urine Occult Blood Negative (NEGATIVE) Urine Nitrite Negative (NEGATIVE) Urine Bilirubin Negative (NEGATIVE) Urine Urobilinogen Normal (NORMAL) mg/dL Ur Leukocyte Esterase Negative (NEGATIVE) Urine RBC Not seen (0-5) Urine WBC Not seen (0-5) Ur Epithelial Cells Not seen Amorphous Sediment Not seen Urine Bacteria Not seen Urine Mucus Not seen Meds: Medications Generic Name Dose Route Start Last Admin Trade Name Freq PRN Reason Stop Dose Admin Sodium Chloride 1,000 mls @ 500 mls/hr 12/11/18 13:45 12/11/18 14:34 Normal Saline IV 500 mls/hr ASDIRECTED CURRY Administration 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 Medications Generic Name Dose Route Start Last Admin Trade Name Freq PRN Reason Stop Dose Admin Alprazolam 0.25 mg 12/11/18 14:25 12/11/18 14:34 Xanax PO 12/11/18 14:26 0.25 mg NOW ONE Administration Hydromorphone HCl Confirm 12/11/18 14:52 12/11/18 15:17 Dilaudid Administered 12/11/18 14:53 Not Given Dose 0.5 mg .ROUTE .STK-MED ONE Hydromorphone HCl 0.5 mg 12/11/18 15:15 12/11/18 15:17 Dilaudid IVPUSH 12/11/18 15:16 0.5 mg ONETIME ONE Administration Sodium Chloride 74 mls @ 3.5 mls/sec 12/11/18 14:15 Normal Saline IV 12/11/18 14:16 ASDIRECTED CURRY Iopamidol 100 ml 12/11/18 14:10 Isovue-300 (61%) IV 12/12/18 14:11 . DIRECTED PRN RADIOLOGY EXAM Ondansetron HCl 4 mg 12/11/18 13:49 Zofran Odt PO 12/11/18 13:50 ONETIME ONE Sodium Chloride 10 ml 12/11/18 14:15 Saline Flush FLUSH 12/11/18 14:16 ONETIME CURRY - Radiology Interpretation Free Text/Narrative:: CT abd/pelvis with IV/PO contrast-fistuala from small bowel to skin surface. CT Results Date: 12/11/18 Departure - Departure Time of Disposition: 16:20 Disposition: Home, Self-Care 01 Condition: Good Clinical Impression: Small bowel fistula - Discharge Information *PRESCRIPTION DRUG MONITORING PROGRAM REVIEWED*: No *COPY OF PRESCRIPTION DRUG MONITORING REPORT IN PATIENT DINO: No Referrals: PCP,None [Primary Care Provider] - Forms: ED Department Discharge Additional Instructions: Change ostomy bag as needed. F/U with Dr. Garcia at 8 am tomorrow in his office. Return as needed. - My Orders Last 24 Hours: My Active Orders 12/11/18 13:38 Abdomen Pelvis wo Cont [CT] Stat 12/11/18 13:45 Sodium Chloride 0.9% [Normal Saline] 1,000 ml IV ASDIRECTED - Assessment/Plan Last 24 Hours: My Active Orders 12/11/18 13:38 Abdomen Pelvis wo Cont [CT] Stat 12/11/18 13:45 Sodium Chloride 0.9% [Normal Saline] 1,000 ml IV ASDIRECTED
[2018-12-11] MEDS ORDERED: Iopamidol 612 MG/ML 100 ML Bottle IV PRN (14:10)
[2018-12-11] MEDS ORDERED: Sodium Chloride 0.9% 10 ML Syringe FLUSH SCH (14:15)
[2018-12-11] MEDS ORDERED: ALPRAZolam 0.25 MG Tab PO ONE (14:25)
[2018-12-11] MEDS: HYDROmorphone 0.5 MG/0.5 ML Syringe ONE ×2 (14:59→15:17)
[2018-12-11] MEDS ORDERED: HYDROmorphone 0.5 MG/0.5 ML Syringe IVPUSH ONE (15:15)
[2018-12-11 15:18] VITALS: BP 137/63
--- NOTE | 2018-12-12 08:19 | CRLCT ---
INDICATION: Wound drainage with feculent material. TECHNIQUE: CT abdomen and pelvis without contrast. COMPARISON: October 08, 2018 FINDINGS: Lower chest: Unremarkable. Liver: Normal in size and attenuation. No masses. Gallbladder and bile ducts: No stones or inflammation. No biliary dilatation. Pancreas: Unremarkable. No mass or inflammation. Spleen: Normal in size. No masses. Adrenal glands: Normal in size. No nodules. Kidneys: Normal in size. No masses, stones, or hydronephrosis. GI tract: The tip of the drainage catheter is within a 3 cm pocket of stool in the anterior abdomen at the level of the umbilicus. This pocket of stool may actually represent small-bowel. There is a fistulous tract from this pocket to the skin surface as demonstrated on series 2, image 79. Remainder of the GI tract is within normal limits in caliber and appearance. Vasculature: Again demonstrated is aortic atherosclerosis and mild saccular aneurysmal dilatation of the infrarenal abdominal aorta. Lymph nodes: No lymphadenopathy. Abdominal wall/Omentum/Peritoneum: No free air. No abscess or hematoma. Pelvis: Unremarkable. No pelvic masses. Bones: Unremarkable for age. IMPRESSION: There is a fistulous connection from the skin surface to a pocket of stool immediately deep to the umbilicus. This pocket of stool either represents small- bowel or communicates with the same. Tip of a percutaneous drainage catheter is in the superior aspect of this pocket. Remainder of the exam is unremarkable. Dictated by Darryl Marina MD @ 12/11/2018 3:33:26 PM Please note that all CT scans at this facility use dose modulation, iterative reconstruction, and/or weight-based dosing when appropriate to reduce radiation dose to as low as reasonably achievable. Dictated by: Darryl Marina MD @ 12/11/2018 15:33:42 (Electronic Signature) MTDD
== END 2018-12-11 16:37 | disposition home or self-care (01) ==
LOC: JP.ED 13:06
DX: K63.2 Fistula of intestine (principal); I10 Essential (primary) hypertension; Z93.3 Colostomy status; Z79.899 Other long term (current) drug therapy; Z88.8 Allergy status to other drugs, medicaments and biological substances; Z88.1 Allergy status to other antibiotic agents; Z88.0 Allergy status to penicillin; Z98.890 Other specified postprocedural states
CPT/HCPCS: 36415; 74176; 80048; 81001; 85027; 99284; A9270; J1170; J7030

== ENCOUNTER 2018-12-15 09:28 | Inpatient (IN) | payer MEDICAID ==
[2018-12-15] MEDS ORDERED: Naloxone 0.4 MG/ML SDV IV PRN (10:03)
[2018-12-15] MEDS: HYDROmorphone/Normal Saline 15 MG/30 ML PCA IV PRN (10:37)
[2018-12-15] MEDS: Dextrose 5%-Lactated Ringers 1,000 ML IV SCH ×2 (10:41→21:31)
[2018-12-15] MEDS ORDERED: amLODIPine 10 MG Tab PO SCH ×2 (11:15→21:00)
[2018-12-15] MEDS: diphenhydrAMINE 50 MG/ML SDV IVPUSH PRN ×2 (11:20→19:29)
[2018-12-15] MEDS: Carvedilol 3.125 MG Tab PO SCH ×2 (12:27→21:05)
[2018-12-15] MEDS: LORazepam 2 MG/ML SDV IV PRN ×2 (13:25→21:11)
[2018-12-16] MEDS: diphenhydrAMINE 50 MG/ML SDV IVPUSH PRN (05:19)
[2018-12-16] MEDS ORDERED: amLODIPine 10 MG Tab PO ONE (07:30)
[2018-12-16] MEDS ORDERED: Carvedilol 3.125 MG Tab PO ONE (07:30)
[2018-12-16] MEDS: Dextrose 5%-Lactated Ringers 1,000 ML IV SCH ×2 (07:37→16:07)
[2018-12-16] MEDS: LORazepam 2 MG/ML SDV IV PRN (07:53)
[2018-12-16] MEDS ORDERED: Meropenem 500 MG SDV ONE ×2 (08:56→13:11)
--- NOTE | 2018-12-16 09:19 | PN ---
DATE OF SERVICE: 12/16/2018 SUBJECTIVE: Eleonora is n.p.o. She will be having surgery this morning. Temperature max of 99.8. Pain has been controlled. REVIEW OF SYSTEMS: Remainder of review of systems negative for any pertinent positives and negatives. OBJECTIVE: GENERAL: Eleonora Batista is a 62-year-old female. VITAL SIGNS: TPR is 99.8, 77, 16, blood pressure 122/65. HEENT: Negative. NECK: Supple. HEART: Regular rate and rhythm. LUNGS: Clear. ABDOMEN: Dressings are intact. EXTREMITIES: Without peripheral edema. ASSESSMENT: Small bowel fistula. PLAN: Orders to be written postoperatively. Cynthia Smith PA-C /[id number]
--- NOTE | 2018-12-16 09:31 | PCM.HP ---
H&P History of Present Illness - General Date of Service: 12/15/18 Admit Problem/Dx: Admission Diagnosis/Problem Admission Diagnosis/Problem Enterocutaneous fistula Source of Information: Patient History Limitations: Reports: No Limitations - History of Present Illness Initial Comments - Free Text/Narative: Eleonora has been dealing with an open abdominal incision and fistula for several weeks. She is being admitted for surgery in the morning. Location: Reports: Abdomen Quality: Reports: Ache, Pressure, Throbbing Severity: Moderate Improves with: Reports: Medication Worsens with: Reports: Eating, Movement Context: Reports: Sick Contact Associated Symptoms: Reports: Malaise, Weakness Abdomen Pain Score (Numeric/FACES): 4 - Related Data Allergies/Adverse Reactions: Allergies Allergy/AdvReac Type Severity Reaction Status Date / Time codeine Allergy Rash Verified 12/11/18 13:29 hydrocodone Allergy Rash Verified 12/11/18 13:29 penicillin Allergy Rash Verified 12/11/18 13:29 erythromycin base AdvReac Nausea Verified 12/11/18 13:29 tetracycline AdvReac Nausea Verified 12/11/18 13:29 Home Medications: Home Meds RX: Acetaminophen [Tylenol Extra Strength] 1 - 2 tab PO Q6H PRN 07/18/16 [ History] RX: Carvedilol [Coreg] 3.125 mg PO BID 09/17/18 [History] RX: Clopidogrel [Plavix] 75 mg PO DAILY 09/17/18 [History] RX: amLODIPine Besylate [Norvasc] 10 mg PO DAILY 09/17/18 [History] RX: atorvaSTATin [Lipitor] 40 mg PO BEDTIME 09/17/18 [History] RX: Aspirin [Halfprin] 81 mg PO BEDTIME 09/19/18 [History] RX: Ibuprofen [Advil] 400 mg PO Q6HR 10/08/18 [History] RX: HYDROmorphone [Dilaudid] 2 - 4 mg PO Q4H PRN #40 tablet 10/20/18 [Rx] RX: Ondansetron [Zofran ODT] 4 mg PO Q4H PRN #30 tab.dis 10/20/18 [Rx] RX: ALPRAZolam [Alprazolam] 0.25 mg PO Q4H PRN 11/14/18 [History] Past Medical History HEENT History: Reports: Impaired Vision Cardiovascular History: Reports: Blood Clots/VTE/DVT, CAD, Hypertension Other Cardiovascular History: DVT in 2013 with coumadin therapy.Presently taking plavix off x 7 days. 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 Neurological History: Reports: TIA Psychiatric History: Reports: Depression Hematologic History: Reports: Anemia, Blood Transfusion(s), Iron Deficiency Dermatologic History: Reports: None Other Dermatologic History: right rash - Infectious Disease History Infectious Disease History: Reports: Chicken Pox, Measles - Past Surgical History HEENT Surgical History: Reports: None Cardiovascular Surgical History: Reports: None Respiratory Surgical History: Reports: None GI Surgical History: Reports: Colonoscopy, Hernia Repair/Other, Small Bowel, Other (See Below) Other GI Surgeries/Procedures: very eventful hernia repair Female Surgical History: Reports: Section, Hysterectomy Musculoskeletal Surgical History: Reports: Ganglion Cyst Social & Family History - Family History Family Medical History: Noncontributory - Tobacco Use Smoking Status *Q: Former Smoker Years of Tobacco use: 40 Used Tobacco, but Quit: Yes Month/Year Tobacco Last Used: 11/2008 Second Hand Smoke Exposure: No - Caffeine Use Caffeine Use: Reports: Coffee, Soda - Recreational Drug Use Recreational Drug Use: No H&P Review of Systems - Review of Systems: Review Of Systems: See Below General: Reports: Malaise, Weakness, Fatigue, Weight Loss HEENT: Reports: No Symptoms Pulmonary: Reports: No Symptoms Cardiovascular: Reports: No Symptoms Gastrointestinal: Reports: Abdominal Pain, Decreased Appetite Genitourinary: Reports: No Symptoms Musculoskeletal: Reports: No Symptoms Skin: Reports: No Symptoms Psychiatric: Reports: Depression Neurological: Reports: No Symptoms Hematologic/Lymphatic: Reports: No Symptoms Immunologic: Reports: No Symptoms Exam - Exam Exam: See Below - Vital Signs Vital Signs: Last Vital Signs Temp 99.8 F 12/16/18 07:31 Pulse 77 12/16/18 08:13 Resp 16 12/16/18 07:31 BP 122/65 12/16/18 08:14 Pulse Ox 97 12/16/18 07:31 Weight: 145 lb 3.214 oz - Exam General: Moderate Distress HEENT: PERRLA Neck: Supple Lungs: Clear to Auscultation, Normal Respiratory Effort Cardiovascular: Regular Rate, Regular Rhythm GI/Abdominal Exam: Other (open abdominal wound) (Female) Exam: Deferred Rectal (Female) Exam: Deferred Back Exam: Normal Inspection, Full Range of Motion Extremities: Normal Inspection, Normal Range of Motion Skin: Warm, Dry, Intact Neurological: Cranial Nerves Intact, Reflexes Equal Bilateral Neuro Extensive - Mental Status: Alert, Oriented x3 Neuro Extensive - Motor, Sensory, Reflexes: CN II-XII Intact Psychiatric: Alert, Normal Affect - Patient Data Lab Results Last 24 hrs: Laboratory Results - last 24 hr 12/15/18 Range/Units 10:19 Blood Type A POSITIVE Gel Antibody Screen Positive A* Crossmatch See Detail - Problem List (1) Small bowel fistula SNOMED Code(s): 023187827 ICD Code: K63.2 - FISTULA OF INTESTINE Status: Acute Current Visit: No Problem List Initiated/Reviewed/Updated: Yes Orders Last 24hrs: Active Orders 24 hr Category Date Time Status Admission Status [Patient Status] [ADT] Routine ADT 12/15/18 08:30 Active Ambulate [RC] QID Care 12/15/18 09:59 Active Drain Management [RC] ASDIRECTED Care 12/15/18 10:04 Active Incentive Breathing [RT Incentive Spirometry] [RC] Care 12/15/18 10:07 Active ASDIRECTED Intake and Output [RC] QSHIFT Care 12/15/18 10:00 Active Up to Chair [RC] QID Care 12/15/18 09:57 Active Verify Patient Consent Obtain [RC] ASDIRECTED Care 12/16/18 08:00 Active Vital Signs [RC] Q4H Care 12/15/18 09:57 Active Wound Care [RC] ASDIRECTED Care 12/15/18 10:01 Active NPO After Midnight [Nothing per Oral After Midnight Diet 12/15/18 Dinner Active Diet] [DIET] Regular Diet [DIET] Diet 12/15/18 Lunch Active ANTIBODY IDENTIFICATION [BBK] Routine Lab 12/15/18 10:19 Results RED BLOOD CELLS LP [BBK] Routine Lab 12/15/18 10:19 Results TYPE AND SCREEN [BBK] Routine Lab 12/15/18 10:19 Results Dextrose 5%-Lactated Ringers 1,000 ml Med 12/15/18 10:15 Active IV ASDIRECTED HYDROmorphone/Normal Saline [Dilaudid LEAD PRODUCER 15 MG in NS Med 12/15/18 10:03 Active 30 ML] 0 mg IV ASDIRECTED PRN LORazepam [Ativan] Med 12/15/18 10:08 Active 1 mg IV Q4H PRN Meropenem [Merrem] 500 mg Med 12/16/18 10:30 Active Sodium Chloride 0.9% [Normal Saline] 50 ml IV ONETIME Naloxone [Narcan] Med 12/15/18 10:03 Active 0.1 mg IV ASDIRECTED PRN Ropivacaine [Naropin 0.5%] 32 ml Med 12/16/18 10:45 Active Dexamethasone 8 mg EPINEPHrine [Adrenalin] 0.4 mg Sodium Chloride 0.9% [Normal Saline] 45.6 ml NERVRT ASDIRECTED diphenhydrAMINE [Benadryl] Med 12/15/18 11:10 Active 25 mg IVPUSH Q6H PRN Percutaneous Endoscopic Jejunostomy Tube [OM.PC] Oth 12/15/18 10:04 Ordered Routine Pulse Oximetry Continuous Monitoring [OM.PC] Routine Oth 12/15/18 10:10 Ordered SCD [Sequential Compression Device] [OM.PC] Routine Oth 12/15/18 10:07 Ordered Medication Orders Ropivacaine 32 ml/Dexamethasone 8 mg/Epinephrine HCl 0.4 mg/ Sodium Chloride 45.6 ml 0 ml NERVRT ASDIRECTED CURRY Diphenhydramine HCl (Benadryl) 25 mg IVPUSH Q6H PRN PRN Reason: Itching Last Admin: 12/16/18 05:19 Dose: 25 mg Admin: 12/15/18 19:29 Dose: 25 mg Admin: 12/15/18 11:20 Dose: 25 mg Hydromorphone HCl (Dilaudid Cat Breeder 15 Mg In Ns 30 Ml) 0 mg IV ASDIRECTED PRN; Protocol PRN Reason: LEAD PRODUCER PAIN CONTROL Last Admin: 12/15/18 10:37 Dose: 15 mg Dextrose/Lactated Ringer's (Dextrose 5%-Lactated Ringers) 1,000 mls @ 100 mls/ hr IV ASDIRECTED CURRY Last Admin: 12/16/18 07:37 Dose: 100 mls/hr Infusion: 12/16/18 07:31 Dose: 100 mls/hr Admin: 12/15/18 21:31 Dose: 100 mls/hr Infusion: 12/15/18 20:41 Dose: 100 mls/hr Admin: 12/15/18 10:41 Dose: 100 mls/hr Meropenem 500 mg/ Sodium (Chloride) 50 mls @ 100 mls/hr IV ONETIME ONE Stop: 12/16/18 10:59 Lorazepam (Ativan) 1 mg IV Q4H PRN PRN Reason: ANXIETY Last Admin: 12/16/18 07:53 Dose: 1 mg Admin: 12/15/18 21:11 Dose: 1 mg Admin: 12/15/18 13:25 Dose: 1 mg Naloxone HCl (Narcan) 0.1 mg IV ASDIRECTED PRN PRN Reason: decreased respiratory rate Assessment/Plan Comment:: Assessment: Gastric Fistula Open Abdominal Wound Plan: NPO after MN See Copy of Consent for Surgery See EMR for orders Patient cleared for General Anesthesia Cynthia Dennis 12/16/18
[2018-12-16] MEDS ORDERED: Ondansetron 4 MG/2 ML SDV ONE (09:37)
[2018-12-16] MEDS ORDERED: Succinylcholine 200 MG/10 ML MDV ONE (09:37)
[2018-12-16] MEDS ORDERED: Rocuronium 50 MG/5 ML Vial ONE ×2 (09:37→11:34)
[2018-12-16] MEDS ORDERED: Propofol 200 MG/20 ML SDV ONE (09:37)
[2018-12-16] MEDS ORDERED: Dexamethasone 4 MG/ML SDV ONE (09:37)
[2018-12-16] MEDS ORDERED: fentaNYL 250 MCG/5 ML SDV ONE (09:37)
[2018-12-16] MEDS ORDERED: Glycopyrrolate 0.2 MG/ML 5 ML MDV ONE (09:37)
[2018-12-16] MEDS ORDERED: Neostigmine Methylsulfate 1 MG/ML 5 ML Syringe ONE (09:37)
[2018-12-16] MEDS ORDERED: Meropenem 500 MG in Sodium Chloride 0.9% 50 ML IV ONE (10:30)
[2018-12-16] MEDS: Ropivacaine 32 ML, Dexamethasone 8 MG, EPINEPHrine 0.4 MG, Sodium Chloride 0.9% 45.6 ML NERVRT SCH ×8 (11:58→13:50)
[2018-12-16] MEDS ORDERED: Lactated Ringers 1,000 ML ONE (12:37)
[2018-12-16] MEDS ORDERED: fentaNYL 100 MCG/2 ML SDV ONE (14:00)
--- NOTE | 2018-12-16 14:58 | CRLCR ---
INDICATION: Line placement TECHNIQUE: Chest 1 view. 2:31 p.m. COMPARISON: None FINDINGS: Cardiovascular and mediastinum: Heart size and vasculature are normal in caliber and appearance. Mediastinum is within normal limits. Lungs and pleural space: Lungs are clear. No sign of infiltrate or mass. No sign of pleural effusion. No pneumothorax. Bones and soft tissues: No significant findings. Lines and tubes: Left-sided subclavian line tip is not well seen but the line tracks into the left side of the neck. IMPRESSION: Left-sided subclavian line tip is not well seen but the line tracks into the left side of the neck and should be retracted and repositioned. Dictated by Glen Gibson MD @ 12/16/2018 2:56:53 PM Dictated by: Glen Gibson MD @ 12/16/2018 14:57:04 (Electronically Signed)
[2018-12-16] MEDS ORDERED: hydrOXYzine HCl 100 MG/2 ML SDV IM PRN (15:45)
[2018-12-16] MEDS: Lactated Ringers 1,000 ML IV SCH (16:07)
[2018-12-16] MEDS: Meropenem 500 MG in Sodium Chloride 0.9% 50 ML IV SCH ×2 (16:25→22:26)
[2018-12-16] MEDS: Pantoprazole 40 MG Vial IV SCH (16:26)
[2018-12-16] MEDS: Ondansetron 4 MG/2 ML SDV IVPUSH PRN ×2 (17:24→22:30)
[2018-12-16] MEDS: Carvedilol 3.125 MG Tab PO SCH (20:25)
[2018-12-16] MEDS: HYDROmorphone/Normal Saline 15 MG/30 ML PCA IV PRN (20:30)
[2018-12-17] MEDS: LORazepam 2 MG/ML SDV IVPUSH PRN ×2 (00:36→05:27)
[2018-12-17] MEDS: Dextrose 5%-Lactated Ringers 1,000 ML IV SCH (02:43)
[2018-12-17] MEDS: Lactated Ringers 1,000 ML IV SCH (02:44)
[2018-12-17] MEDS: Meropenem 500 MG in Sodium Chloride 0.9% 50 ML IV SCH ×4 (04:56→21:37)
[2018-12-17] MEDS ORDERED: Lactated Ringers 1,000 ML IV SCH (07:28)
[2018-12-17] MEDS ORDERED: Central Total Parenteral Nutrition Bag SCH (07:30)
[2018-12-17] MEDS: Ondansetron 4 MG/2 ML SDV IVPUSH PRN ×3 (08:04→22:51)
[2018-12-17] MEDS: amLODIPine 10 MG Tab PO SCH (08:40)
[2018-12-17] MEDS: Carvedilol 3.125 MG Tab PO SCH ×2 (08:43→20:04)
[2018-12-17] MEDS: Clopidogrel 75 MG Tab PO SCH (08:44)
--- NOTE | 2018-12-17 08:44 | PN ---
DATE OF SERVICE: 12/17/2018 Eleonora is postoperative day 1. Pain has been controlled. Temp max of 99, n.p.o., with the exception of ice chips. Mcintosh catheter output was 2900. AYSE drain 1 and 2, put out 30 and 30 respectively. LABORATORY DATA: Hemoglobin 8.9. Magnesium is 1.6. BNP is 968. REVIEW OF SYSTEMS: Remainder review of systems negative for any pertinent positives or negatives. OBJECTIVE: GENERAL: Eleonora Batista is a 62-year-old female. She is alert and talkative this morning. VITAL SIGNS: TPR is 99, 80, 16, blood pressure 135/69. HEENT: Negative. NECK: Supple. HEART: Regular rate and rhythm. LUNGS: Clear. ABDOMEN: Dressings dry and intact. Abdominal binder is on. YASE drains intact. EXTREMITIES: Without peripheral edema. ASSESSMENT: 1. Insertion of left subclavian triple-lumen catheter. 2. Exploratory laparotomy with lysis of extensive adhesions, takedown of enterocutaneous fistula, small bowel resection, small-bowel strictureplasty and placement of Interceed mesh for persistent enterocutaneous fistula, areas of small bowel stricturing and insertion of left subclavian access. Date of surgery, 12/16/2018. PLAN: 1. Continue Mcintosh catheter for accurate intake and output. 2. Wound VAC to open incision. 3. Magnesium 2 g q.6h x48 hours. 4. 1 unit of packed red blood cells today. 5. D5LR TKO when TPN starts. 6. Lactated Ringer's IV TKO now. 7. Start on TPN 82 mL per hour TPN order content sheet faxed to Pharmacy to use proximal port. 8. Restart Plavix and aspirin as she normally takes at home. Check CBC, CMP, BNP, and CBC in a.m. 9. Good pulmonary toilet. 10.We will evaluate p.r.n. or in the a.m. Cynthia Smith PA-C /[id number]
[2018-12-17] MEDS: Magnesium Sulfate/Water 2 GM in Premix Bag 1 BAG IV SCH ×3 (09:13→20:02)
[2018-12-17] MEDS ORDERED: Dextrose 5%-Lactated Ringers 1,000 ML IV SCH ×2 (11:00→11:30)
[2018-12-17] MEDS: 1: AA 4.25%/Calcium/D10W/Lytes 1,000 ML with MVI, Adult with Vitamin K 10 ML, Chromium/C IV SCH ×6 (11:55→23:46)
[2018-12-17] MEDS: ALPRAZolam 0.25 MG Tab PO PRN (16:47)
[2018-12-17] MEDS: Pantoprazole 40 MG Vial IV SCH (16:49)
[2018-12-17] MEDS: Aspirin 81 MG Tab.EC PO SCH (20:04)
[2018-12-17] MEDS: Acetaminophen 500 MG Tab PO SCH (21:35)
[2018-12-17] MEDS: HYDROmorphone/Normal Saline 15 MG/30 ML PCA IV PRN (22:58)
[2018-12-18] MEDS: Magnesium Sulfate/Water 2 GM in Premix Bag 1 BAG IV SCH ×4 (01:33→21:24)
[2018-12-18] MEDS: Acetaminophen 500 MG Tab PO SCH ×4 (03:13→21:26)
[2018-12-18] MEDS: ALPRAZolam 0.25 MG Tab PO PRN (03:59)
[2018-12-18] MEDS: Meropenem 500 MG in Sodium Chloride 0.9% 50 ML IV SCH ×2 (04:00→10:46)
[2018-12-18] MEDS ORDERED: Sodium Chloride 0.9% 1,000 ML IV SCH (07:45)
[2018-12-18] MEDS ORDERED: Central Total Parenteral Nutrition Bag SCH (07:45)
[2018-12-18] MEDS: amLODIPine 10 MG Tab PO SCH (08:01)
[2018-12-18] MEDS: Carvedilol 3.125 MG Tab PO SCH ×2 (08:01→21:26)
[2018-12-18] MEDS: Clopidogrel 75 MG Tab PO SCH (08:01)
[2018-12-18] MEDS: Ondansetron 4 MG/2 ML SDV IVPUSH PRN (08:05)
--- NOTE | 2018-12-18 09:16 | PN ---
DATE OF SERVICE: 12/18/2018 SUBJECTIVE: Eleonora is postoperative day #2. She has the wound VAC done and it seems to be functioning well. Oral intake is sips of clear liquids. Reports mouth is dry. Mcintosh catheter output 3575. AYSE drain put out 20 mL. She did receive 1 unit of packed red blood cells yesterday. Hemoglobin went from 8.9 to 8.6, thought to be fluid shifting. TPN is running without difficulty. Blood sugar is 133. BNP is 753. Albumin 2.3. Pain is controlled for the most part using her RAISE DRILL OPERATOR. REVIEW OF SYSTEMS: Remainder of review of systems negative for any pertinent positives and negatives. OBJECTIVE: GENERAL: Eleonora Batista is a 62-year-old female. She is alert and orientated. VITAL SIGNS: TPR is 97.1, 79, 16, blood pressure 118/63. HEENT: Negative. NECK: Supple. HEART: Regular rate and rhythm. LUNGS: Clear. ABDOMEN: Wound VAC is intact. Abdominal binder on. AYSE drain intact. EXTREMITIES: Without peripheral edema. ASSESSMENT: 1. Insertion of left subclavian triple lumen for inadequate venous access. 2. Exploratory laparotomy with lysis of extensive adhesion, takedown of enterocutaneous fistula, small bowel resection, small bowel stricture plasty, and placement of Interceed mesh for persistent enterocutaneous fistula, areas of small bowel stricturing. Date of surgery: 12/16/2018. Surgeon: Srikanth Garcia MD. PLAN: 1. Discontinue Mcintosh catheter. CBC without diff, CMP, magnesium, phosphorus, BNP. Continue same TPN rate and content. Discontinue lactated Ringer's, change to normal saline for compatibility with antibiotics. Give 1 unit of red blood cells. Discontinue D5LR and lactated Ringer's. 2. Dulcolax 10 mg b.i.d. until BM and Colace 100 mg b.i.d. 3. Good pulmonary toilet. 4. We will evaluate p.r.n. or in a.m. Cynthia Smith PA-C /[id number]
[2018-12-18] MEDS: Docusate Sodium 100 MG Cap PO SCH ×2 (10:46→21:27)
[2018-12-18] MEDS: Bisacodyl 5 MG Tab PO SCH ×2 (10:46→21:26)
[2018-12-18] MEDS: 1: AA 4.25%/Calcium/D10W/Lytes 1,000 ML with MVI, Adult with Vitamin K 10 ML, Chromium/C IV SCH ×6 (11:46→23:47)
[2018-12-18] MEDS: Pantoprazole 40 MG Vial IV SCH (16:36)
[2018-12-18] MEDS ORDERED: HYDROmorphone/Normal Saline 15 MG/30 ML PCA IV SCH (19:00)
[2018-12-18] MEDS: Aspirin 81 MG Tab.EC PO SCH (21:27)
[2018-12-19] MEDS: Magnesium Sulfate/Water 2 GM in Premix Bag 1 BAG IV SCH (02:07)
[2018-12-19] MEDS: Acetaminophen 500 MG Tab PO SCH (03:13)
[2018-12-19] MEDS: Ondansetron 4 MG/2 ML SDV IVPUSH PRN (06:26)
[2018-12-19] MEDS ORDERED: HYDROmorphone/Normal Saline 15 MG/30 ML PCA IV PRN (07:09)
[2018-12-19] MEDS ORDERED: Ketorolac 60 MG/2 ML SDV IM ONE (07:30)
[2018-12-19] MEDS ORDERED: Central Total Parenteral Nutrition Bag SCH (08:00)
[2018-12-19] MEDS ORDERED: Ibuprofen 600 MG Tab PO SCH (08:00)
[2018-12-19] MEDS: Carvedilol 3.125 MG Tab PO SCH ×2 (08:48→20:06)
[2018-12-19] MEDS: Docusate Sodium 100 MG Cap PO SCH ×2 (08:48→20:06)
[2018-12-19] MEDS: amLODIPine 10 MG Tab PO SCH (08:53)
[2018-12-19] MEDS: Bisacodyl 5 MG Tab PO SCH ×2 (08:53→20:06)
[2018-12-19] MEDS: Clopidogrel 75 MG Tab PO SCH (08:54)
--- NOTE | 2018-12-19 09:53 | PN ---
DATE OF SERVICE: 12/19/2018 SUBJECTIVE: Eleonora has had difficulty with pain control. 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 She is somewhat nauseated. She said she is not sure if it is related to the NAME PLATE STAMPING MACHINE OPERATOR. She also is not passing any flatus. Pain is in mid abdomen area. Has been up walking, tolerating that well. Wound VAC will be ready to be changed today. Oral intake 120. Urine output via Mcintosh catheter is 3575. REVIEW OF SYSTEMS: Remainder of review of systems negative for any pertinent positives and negatives. OBJECTIVE: GENERAL: Eleonora Batista is a 62-year-old female. She is lying in bed, quite talkative. VITAL SIGNS: TPR is 98.6, 72, 18, blood pressure 156/78. She reports pain on a pain scale of 1 to 10 at 12/10. HEENT: Negative. NECK: Supple. HEART: Regular rate and rhythm. LUNGS: Clear. ABDOMEN: Wound VAC is on. Abdominal binder intact. AYSE drain put out 100 mL. EXTREMITIES: Without peripheral edema. ASSESSMENT: 1. Insertion of left subclavian triple-lumen for inadequate venous access. 2. Exploratory laparotomy with lysis of extensive adhesions, takedown of enterocutaneous fistula, small bowel resection, small bowel stricture plasty, and placement of Interceed mesh for persistent enterocutaneous fistula, areas of small bowel stricturing. Date of surgery: 12/16/2018. Surgeon: Srikanth Garcia MD. PLAN: 1. Continue same TPN rate and content. 2. Check CBC, CMP, mag, and phos in a.m. 3. Give Toradol 60 mg IM now. 4. Ibuprofen 600 mg q.6 h. scheduled to take with food. 5. IV Tylenol 1 g q.6 h. scheduled for 24 hours, then we will re-evaluate. 6. Good pulmonary toilet. 7. We will evaluate p.r.n. or in a.m. Cynthia Smith PA-C /[id number]
[2018-12-19] MEDS: Acetaminophen 1,000 MG in Premix Bag 1 BAG IV SCH ×3 (09:56→21:53)
[2018-12-19] MEDS: 1: AA 4.25%/Calcium/D10W/Lytes 1,000 ML with MVI, Adult with Vitamin K 10 ML, Chromium/C IV SCH ×3 (13:41)
[2018-12-19] MEDS: Ibuprofen 600 MG Tab PO SCH ×2 (13:43→20:05)
[2018-12-19] MEDS: Pantoprazole 40 MG Vial IV SCH (17:55)
[2018-12-19] MEDS: Aspirin 81 MG Tab.EC PO SCH (20:05)
[2018-12-20] MEDS: 1: AA 4.25%/Calcium/D10W/Lytes 1,000 ML with MVI, Adult with Vitamin K 10 ML, Chromium/C IV SCH ×6 (01:24→11:42)
[2018-12-20] MEDS: Ibuprofen 600 MG Tab PO SCH ×4 (03:22→20:02)
[2018-12-20] MEDS: Acetaminophen 1,000 MG in Premix Bag 1 BAG IV SCH (03:23)
[2018-12-20] MEDS: Ondansetron 4 MG/2 ML SDV IVPUSH PRN (07:27)
[2018-12-20] MEDS ORDERED: Central Total Parenteral Nutrition Bag SCH (07:30)
[2018-12-20] MEDS: Carvedilol 3.125 MG Tab PO SCH ×2 (08:30→20:03)
[2018-12-20] MEDS: Docusate Sodium 100 MG Cap PO SCH ×2 (08:30→20:02)
[2018-12-20] MEDS: Bisacodyl 5 MG Tab PO SCH ×2 (08:31→20:04)
[2018-12-20] MEDS: Clopidogrel 75 MG Tab PO SCH (08:31)
[2018-12-20] MEDS: amLODIPine 10 MG Tab PO SCH (08:31)
--- NOTE | 2018-12-20 09:50 | PN ---
DATE OF SERVICE: 12/20/2018 HISTORY OF PRESENT ILLNESS: Eleonora was not able to tolerate the wound VAC being put back on yesterday, so her open incision has been changed with 4x4s with an ABD over the top. She has had the dressings changed more frequently than twice a day due to an increased amount of pink serosanguineous drainage from that open incision. She is passing flatus, states had a small bowel movement which was not witnessed by nursing staff. The patient states it was very small. Her pain is controlled. She states she feels like a different person. She is sitting up in the chair. REVIEW OF SYSTEMS: Remainder of review of systems negative for any pertinent positives and negatives. OBJECTIVE: GENERAL: Eleonora Batista is a 62-year-old female, alert, orientated. VITAL SIGNS: TPR is 95.5, 72, 16, blood pressure 128/71. HEENT: Negative. NECK: Supple. HEART: Regular rate and rhythm. LUNGS: Clear. ABDOMEN: Dressing is dry and intact. Abdominal binder is on. EXTREMITIES: Without peripheral edema. ASSESSMENT: 1. Insertion of left subclavian triple-lumen for inadequate venous access. 2. Exploratory laparotomy with lysis of extensive adhesion, takedown of enterocutaneous fistula, small bowel resection, small bowel stricturoplasty, and placement of Interceed mesh for persistent enterocutaneous fistula areas of small bowel stricturing. Date of surgery 12/16/2018. Surgeon, Srikanth Garcia MD. PLAN: 1. Continue same TPN rate and content. 2. Check CBC, CMP, mag, and phos in a.m. 3. Tylenol 1000 mg q.6 hours scheduled. 4. Clear liquid diet. 5. Change dressings on open incisions b.i.d. with 4x4s and ABDs and p.r.n. Good pulmonary toilet. 6. We will evaluate p.r.n. or in a.m. Cynthia Smith PA-C /[id number]
[2018-12-20] MEDS: Acetaminophen 500 MG Tab PO SCH ×3 (11:40→22:02)
[2018-12-20] MEDS: ALPRAZolam 0.25 MG Tab PO PRN (15:23)
[2018-12-20] MEDS ORDERED: oxyCODONE 5 MG Tab PO PRN (16:54)
[2018-12-20] MEDS: Pantoprazole 40 MG Vial IV SCH (18:36)
[2018-12-20] MEDS: Aspirin 81 MG Tab.EC PO SCH (20:03)
[2018-12-21] MEDS: 1: AA 4.25%/Calcium/D10W/Lytes 1,000 ML with MVI, Adult with Vitamin K 10 ML, Chromium/C IV SCH ×3 (00:42)
[2018-12-21] MEDS: Ibuprofen 600 MG Tab PO SCH ×4 (02:09→19:46)
[2018-12-21] MEDS: Acetaminophen 500 MG Tab PO SCH ×4 (03:04→21:37)
[2018-12-21] MEDS ORDERED: Central Total Parenteral Nutrition Bag SCH (07:45)
[2018-12-21] MEDS: Carvedilol 3.125 MG Tab PO SCH ×2 (08:35→21:34)
[2018-12-21] MEDS: Lactobacillus Rhamnosus GG (Probiotic) Cap PO SCH ×2 (08:36→21:36)
[2018-12-21] MEDS: amLODIPine 10 MG Tab PO SCH (08:36)
[2018-12-21] MEDS: Clopidogrel 75 MG Tab PO SCH (08:36)
--- NOTE | 2018-12-21 10:07 | PN ---
DATE OF SERVICE: 12/21/2018 HISTORY OF PRESENT ILLNESS: Eleonora states her pain is controlled. She is feeling better. She has been ambulating. Oral intake 350 and she started having bowel movements around 0800 yesterday morning and she has had 9 as of report. Unfortunately, her Dulcolax tabs were continued to be given which increased the amount of stool she was having. Hemoglobin was 9.2 this morning. Afebrile. REVIEW OF SYSTEMS: Remainder of review of systems negative for any pertinent positives and negatives. OBJECTIVE: GENERAL: Eleonora Batista is a 62-year-old female. She looks like she is feeling much better. Color remains pale. VITAL SIGNS: TPR is 98.3, 70, 16, blood pressure 144/69. HEENT: Negative. NECK: Supple. HEART: Regular rate and rhythm. LUNGS: Clear. ABDOMEN: Dressings currently are dry and intact. She has been having the 4x4s laid in the open incision with an ABD over the top. AYSE drains per report put out 40 mL of a serosanguineous drainage. EXTREMITIES: Without peripheral edema. ASSESSMENT: 1. Insertion of left subclavian triple lumen for an adequate vein access. 2. Exploratory laparotomy with lysis of extensive adhesions, takedown of enterocutaneous fistula, small bowel resection, small bowel stricturoplasty, and placement of Interceed mesh for persistent enterocutaneous fistula and areas of small bowel stricturing. Date of surgery, 12/16/2018. Surgeon, Srikanth Garcia MD. PLAN: 1. Decrease TPN to 42 mL per hour and discontinue when this current bag is completed. 2. GI: Soft, low-fiber diet, Probiotic 1 capsule p.o. b.i.d., discontinue Dulcolax oral tabs. 3. Discontinue Colace 100 mg p.o. b.i.d. 4. Dressing off, may shower, and then replace dressing, and resume dressing changes as previously ordered. 5. Check CBC, CMP, phos, and BNP in the a.m. 6. Good pulmonary toilet. 7. We will evaluate p.r.n. or in a.m. Cynthia Smith PA-C /[id number]
[2018-12-21] MEDS ORDERED: 1: AA 4.25%/Calcium/D10W/Lytes 1,000 ML with MVI, Adult with Vitamin K 10 ML, Chromium/C IV SCH ×3 (15:15)
[2018-12-21] MEDS ORDERED: Pantoprazole 40 MG Tab.CR PO SCH (16:30)
[2018-12-21] MEDS: ALPRAZolam 0.25 MG Tab PO PRN ×2 (17:00→23:04)
[2018-12-21] MEDS: Aspirin 81 MG Tab.EC PO SCH (21:36)
[2018-12-22] MEDS: Ibuprofen 600 MG Tab PO SCH ×2 (02:48→08:26)
[2018-12-22] MEDS: Acetaminophen 500 MG Tab PO SCH (03:56)
[2018-12-22 06:49] VITALS: BP 144/81
[2018-12-22] MEDS ORDERED: HYDROmorphone 2 MG Tab PO SCH (08:15)
[2018-12-22] MEDS: Lactobacillus Rhamnosus GG (Probiotic) Cap PO SCH (08:26)
[2018-12-22] MEDS: amLODIPine 10 MG Tab PO SCH (08:26)
[2018-12-22] MEDS: Carvedilol 3.125 MG Tab PO SCH (08:26)
[2018-12-22] MEDS: Clopidogrel 75 MG Tab PO SCH (08:27)
--- NOTE | 2018-12-22 11:01 | DISCH ---
ADMISSION DIAGNOSES: 1. Small bowel fistula. 2. Lumbar disk disease. 3. Lumbar compression fracture. 4. Chronic obstructive pulmonary disease. 5. Hemispheric carotid artery syndrome. 6. History of nicotine addiction. DISCHARGE DIAGNOSES: 1. Insertion of left subclavian triple-lumen for inadequate venous access. 2. Exploratory laparotomy with lysis of extensive adhesions, takedown of enterocutaneous fistula, small bowel resection, small bowel stricture plasty, and placement of Interceed mesh for persistent enterocutaneous fistula, areas of small bowel stricturing. Date of surgery: 12/16/2018. Surgeon: Srikanth Garcia MD. HISTORY: Eleonora Batista is a 62-year-old female who had an open abdominal incision with wound VAC. She does wound VAC treatment 3 times a week. She did develop a fistula. After preoperative evaluation and discussion of possible risks and possible complications, she wished to proceed with surgical procedure. HOSPITAL COURSE: Eleonora was admitted on 12/15/2018 from the clinic. She had her surgical procedure on 12/16/2018. She had no operative complications. On postoperative day #1, wound VAC was placed to open incision. Magnesium was replaced. She was given 1 unit of packed red blood cells for hemoglobin of 8.9, and her home medications were restarted. On postoperative day #2, wound VAC was functioning well. Hemoglobin after the 1 unit of packed red blood cells went from 8.9 down to 8.6, thought to be fluid shifting. Her TPN is continuing to run. She was started on bowel stimulation and was given another unit of packed red blood cells. Pain management was difficult and pain medications were adjusted. On 12/19, she continued the same TPN. She was given IM Toradol, ibuprofen was increased. On 12/20/2018, she had refused that evening to have the wound VAC put on. Her open incision had 4x4s and ABD. Her pain was controlled. She felt much better without the wound VAC. States her pain was down to 1 to 2 versus a 12 with the wound VAC. Passing flatus. Did have a small bowel movement and was started on a clear liquid diet and advanced to a full liquid diet. On 12/21, she started having bowel movements, within the past 24 hours had 9, and her TPN was decreased and stopped after her bag was in. Labs looked good, and on 12/22/2018, she was able to be discharged to home without any complications. Labs: Hemoglobin 8.7, potassium was 3.5, albumin was 2.4, protein 6.5. OBJECTIVE: GENERAL: Eleonora Batista is a 62-year-old female. VITAL SIGNS: Height is 5 feet 4.96 inches, weight is 145 pounds. TPR is 99.3, 88, 18, blood pressure is 144/81. HEENT: Negative. NECK: Supple. HEART: Regular rate and rhythm. LUNGS: Clear. ABDOMEN: Dressings dry and intact. Abdominal binder is on. EXTREMITIES: Without peripheral edema. DISPOSITION: Discharged to home. CONDITION: Stable and improving. MEDICATIONS: She is to resume her home medications. New medication is Culturelle one capsule twice a day #60. Home medications: 1. Alprazolam 0.25 mg every 4 hours p.r.n. anxiety. 2. Tylenol Extra Strength 1 to 2 every 6 hours p.r.n. pain. 3. Aspirin 81 mg oral at bedtime. 4. Carvedilol/Coreg 3.125 mg oral twice daily. 5. Plavix 75 mg oral daily. 6. Dilaudid 2 mg 2 to 4 every 4 hours p.r.n. pain. 7. Advil 400 mg oral q.6 h. or Motrin 600 mg q.6 h, which she has at home. 8. Zofran ODT 4 mg every 4 hours p.r.n. nausea. 9. Norvasc 10 mg oral daily. 10.Lipitor 40 mg at bedtime. DIET: Usual diet as tolerated. Drink 8 to 10 glasses of water a day. ACTIVITY: No lifting over 10 pounds for 6 weeks. Other activity, walk at least 6 times daily inside your home. Driving: Do not drive while on narcotic pain medications and for at least 1 week. Shower/bathing: May shower. No tub bathing or swimming. DISCHARGE INSTRUCTIONS: Notify provider if any fever, increased pain. Keep incision clean and dry. Wound incision care; change dressings twice a day as directed, place 4 x 4 gauze pieces over open incision and put an ABD over the gauze. Use minimal tape to hold in place. Wear abdominal binder. SPECIAL INSTRUCTIONS: Use incentive spirometer 10 times every hour while awake for 1 week. FOLLOWUP: She is to follow up with Srikanth Garcia MD, on 12/24/2018 at 8:00 a.m.
--- NOTE | 2018-12-23 12:03 | OR ---
DATE OF PROCEDURE: 12/16/2018 PREOPERATIVE DIAGNOSES: 1. Persistent enterocutaneous fistula. 2. Indications for central venous access. POSTOPERATIVE DIAGNOSES: 1. Indication for central venous access. 2. Persistent enterocutaneous fistula. 3. Separate area of small bowel stricturing. PROCEDURES: 1. Insertion of left subclavian vein triple-lumen catheter (18547). 2. Exploratory laparotomy with lysis of extensive adhesions including takedown of enterocutaneous fistula and: a. Small bowel resection (71360). b. Small bowel stricturoplasty (56409). c. Interceed mesh was placed at pelvic and abdominal wall from underlying viscera to limit recurrent adhesion formation (67106). ANESTHESIA: General. RESIDENTIAL REAL ESTATE SALES MANAGER: Cynthia Smith PA-C, and [facility]. INDICATION FOR PROCEDURE: The patient now approaching 3 months status post development of enterocutaneous fistula with no signs of this closing. These are also becoming increasingly uncomfortable with the drainage and excoriation of the skin, and at this point, plan to proceed with a definitive takedown of this small bowel resection is indicated. The patient will have a central line inserted at the time of anesthesia induction to facilitate postoperative IV hyperalimentation. Potential risks of the procedure including bleeding, infection, leaks from various GI tract closures including possible recurrence of fistula, problems with the central line insertion such as pneumohemothorax or other vascular injury were all gone over, and the patient wishes to proceed. DETAILS OF PROCEDURE: The patient was taken to the operating room and placed in a supine position. After general endotracheal anesthesia was induced, the upper chest and neck areas were prepped and draped. The left subclavian vein was cannulated, guidewire passed. Over the guidewire, a triple-lumen catheter was inserted. Good return was noted and the ports were flushed with heparinized saline, and the catheter sutured with the skin with some 3-0 silk stitch. Subsequently, the x-ray showed the catheter going up into the jugular vein, but this should be usable using the proximal port for a more hyperosmolar-type solution such as a TPN in the postoperative period. The abdomen at that point had been prepped and draped and a Mcintosh catheter inserted. Initially, a midline incision extending somewhat inferior to the original incision was made and carried down through the skin and subcutaneous tissue. This allowed entrance into the peritoneal cavity in a non-adhesed area. At this point, the incision was gradually extended upward to near the upper aspect of the previous incision. It was a quite tedious dissection with large amount of adhesions noted. Eventually, the bowel was dissected away from the abdominal wall to a point where it was more or less now anchored at the point of the enterocutaneous fistula. The areas of the skin around this were then incised and this then allowed the complex of the adherent small bowel and enterocutaneous fistula to come up above the abdominal wall in a more or less free manner. The bowel coming and going from the fistula was then divided with REYES tim as was the intervening mesentery and the specimen consisting of the small bowel and enterocutaneous fistula was then delivered from the field. Inspection of small bowel showed 1 additional area of stricturing in the mid ileum. This was treated by means of the bowel being opened at the point of the stricture and the bowel flipping over on itself, and 2 internal firings of the REYES tim were then made creating a common opening, and the remaining opening was then closed with REYES purple loads. The angles were anastomosed and reinforced with some 3-0 Vicryl stitch. There was no mesenteric defect in this case and the small bowel continuity was accomplished with a similar anastomosis between the 2 ends of the divided small bowel. Of note, the patient had at this point around 80 cm of small bowel distal to the ligament of Treitz to the point of anastomosis and another 90 cm distal to that which should give the patient overall a very satisfactory length of total small bowel to work with in terms of overall GI function. The anastomosis was accomplished as was this fistula. In this case, the angles were anastomosed and were reinforced with 3-0 Vicryl stitch, and a mesenteric defect was present which was closed with 3-0 Vicryl stitch as well. At this point, the abdomen was irrigated with antibiotic- containing saline solution. No further problems were noted. A single Bello-Sanchez drain was then placed through a stab wound in the right mid abdomen, taken across the area of dissection, from there down into the pelvis. The patient had a very limited omentum remaining in terms of its mobility, and given this, Interceed mesh was laid underneath the incision to try to limit recurrent adhesion formation between the small and large bowel and the pelvic and abdominal everett. Following this, the midline fascia was approximated with #2 Vicryl stitch. The skin and subcutaneous tissue were obviously unsuitable for primary closure and these were packed open with iodoform gauze. In this case, we will plan to proceed with a delayed primary closure given the brittleness and degree of contamination of the subcutaneous tissue plane that allow a secondary closure with the aid of a wound VAC. The drain was sutured to skin with some 4-0 Vicryl stitch, and the patient was then taken to the recovery room in satisfactory condition. There were no evident complications. Physician bilingual teacher assistant, Cynthia Smith, played an essential role in assisting in this case, helping to position the patient, retract structures as needed, as well as suturing and cutting sutures when indicated. Her presence improved patient safety and decreased the operative time. Srikanth Garcia MD /[id number]
== END 2018-12-22 10:25 | disposition home health service (06) | DRG 330 ==
LOC: JP.MS 09:28
PROVIDERS: ADMIT Surgery; ATTEND Surgery
PROC: 0DB80ZZ Excision of Small Intestine, Open Approach (ICD-10-PCS; principal; 2018-12-16)
PROC: 0DN84ZZ Release Small Intestine, Percutaneous Endoscopic Approach (ICD-10-PCS; 2018-12-16)
PROC: 0DNW0ZZ Release Peritoneum, Open Approach (ICD-10-PCS; 2018-12-16)
PROC: 05HN33Z Insertion of Infusion Device into Left Internal Jugular Vein, Percutaneous Approach (ICD-10-PCS; 2018-12-16)
PROC: 3E0M05Z Introduction of Adhesion Barrier into Peritoneal Cavity, Open Approach (ICD-10-PCS; 2018-12-16)
PROC: 30233N1 Transfusion of Nonautologous Red Blood Cells into Peripheral Vein, Percutaneous Approach (ICD-10-PCS; 2018-12-17)
PROC: 30233N1 Transfusion of Nonautologous Red Blood Cells into Peripheral Vein, Percutaneous Approach (ICD-10-PCS; 2018-12-18)
DX: K63.2 Fistula of intestine (principal); K56.50 Intestinal adhesions [bands], unspecified as to partial versus complete obstruction; M48.56XA Collapsed vertebra, not elsewhere classified, lumbar region, initial encounter for fracture; G45.1 Carotid artery syndrome (hemispheric); D64.9 Anemia, unspecified; J44.9 Chronic obstructive pulmonary disease, unspecified; I10 Essential (primary) hypertension; I25.10 Atherosclerotic heart disease of native coronary artery without angina pectoris; Z86.718 Personal history of other venous thrombosis and embolism; F32.9 Major depressive disorder, single episode, unspecified; M19.90 Unspecified osteoarthritis, unspecified site; Z86.73 Personal history of transient ischemic attack (TIA), and cerebral infarction without residual deficits; Z87.891 Personal history of nicotine dependence; E83.42 Hypomagnesemia; H54.7 Unspecified visual loss; Z90.710 Acquired absence of both cervix and uterus; Z79.82 Long term (current) use of aspirin; Z79.01 Long term (current) use of anticoagulants; Z88.1 Allergy status to other antibiotic agents; Z88.5 Allergy status to narcotic agent; Z88.8 Allergy status to other drugs, medicaments and biological substances
CPT/HCPCS: 36415; 36430; 71045; 80053; 83735; 83880; 84100; 85025; 85027; 86850; 86900; 86901; 86902; 86920; 86922; 86970; 87493; 88304; 88307; 94762; 97605; A9270-GY; C9113; J0131; J0171; J0330; J1100; J1170; J1200; J1642; J1885; J2060; J2185; J2405; J2704; J2710; J2795; J3010; J3475; J3490; J7030; J7042; J7050; J7120; P9016

== ENCOUNTER 2021-01-19 07:29 | Inpatient (IN) | payer MEDICAID ==
[~2021-01-19 07:29] MED LIST: Dexamethasone 4 MG/ML SDV ONE; Glycopyrrolate 0.2 MG/ML 5 ML MDV ONE; Neostigmine Methylsulfate 1 MG/ML 5 ML Syringe ONE; Ondansetron 4 MG/2 ML SDV ONE; Propofol 200 MG/20 ML SDV ONE; Rocuronium 50 MG/5 ML Vial ONE; fentaNYL 250 MCG/5 ML SDV ONE
[2021-01-19] MEDS ORDERED: Acetaminophen 500 MG Tab PO ONE (07:30)
[2021-01-19] MEDS ORDERED: Dextrose 5%-Lactated Ringers 1,000 ML IV SCH (08:15)
[2021-01-19] MEDS ORDERED: ceFAZolin 2 GM in Sodium Chloride 0.9% 50 ML IV ONE ×2 (08:30→10:00)
[2021-01-19] MEDS ORDERED: Meropenem 500 MG SDV ONE (08:39)
[2021-01-19] MEDS ORDERED: Lidocaine 1% with EPINEPHrine 1:100,000 50 ML MDV ONE (08:39)
[2021-01-19] MEDS ORDERED: Bupivacaine 0.5% 50 ML MDV ONE (08:39)
[2021-01-19] MEDS ORDERED: Albuterol/Ipratropium 3.0-0.5 MG/3 ML Neb Soln NEB ONE (08:40)
[2021-01-19] MEDS ORDERED: fentaNYL 250 MCG/5 ML SDV ONE (09:55)
[2021-01-19] MEDS ORDERED: Ketamine 500 MG/5 ML MDV IV SCH (10:00)
[2021-01-19] MEDS ORDERED: Ketamine 50 MG in Sodium Chloride 0.9% 49.5 ML IV SCH (10:00)
[2021-01-19] MEDS ORDERED: Rocuronium 50 MG/5 ML Vial ONE (10:42)
[2021-01-19] MEDS ORDERED: Naloxone 0.4 MG/ML SDV IVPUSH PRN (11:23)
[2021-01-19] MEDS ORDERED: HYDROmorphone/Normal Saline 15 MG/30 ML PCA IV PRN (11:23)
[2021-01-19] MEDS ORDERED: Cyclobenzaprine 10 MG Tab PO PRN (14:23)
[2021-01-19] MEDS: Dextrose 5%-Lactated Ringers 1,000 ML IV SCH ×2 (14:36→21:50)
[2021-01-19] MEDS ORDERED: hydrOXYzine HCL 100 MG/2 ML SDV IM PRN (15:00)
[2021-01-19] MEDS ORDERED: Ondansetron 4 MG/2 ML SDV IVPUSH PRN (15:00)
[2021-01-19] MEDS: Acetaminophen 325 MG Tab PO SCH ×2 (16:04→21:25)
[2021-01-19] MEDS: ceFAZolin 2 GM in Premix Bag 1 BAG IV SCH (16:04)
[2021-01-19] MEDS: atorvaSTATin 20 MG Tab PO SCH (21:26)
[2021-01-19] MEDS: Albuterol/Ipratropium 3.0-0.5 MG/3 ML Neb Soln INH SCH (21:28)
[2021-01-19] MEDS ORDERED: amLODIPine 5 MG Tab PO SCH (21:45)
[2021-01-19] MEDS ORDERED: Metoprolol Succinate 50 MG Tab.ER PO SCH (21:45)
[2021-01-19] MEDS ORDERED: Aspirin 81 MG Tab.EC PO SCH (21:45)
[2021-01-19] MEDS ORDERED: Clopidogrel 75 MG Tab PO SCH (21:45)
[2021-01-19] MEDS ORDERED: Furosemide 20 MG/2 ML VIAL IVPUSH SCH (23:45)
[2021-01-20] MEDS: Dextrose 5%-Lactated Ringers 1,000 ML IV SCH (00:04)
[2021-01-20] MEDS: ceFAZolin 2 GM in Premix Bag 1 BAG IV SCH ×3 (00:09→15:45)
[2021-01-20] MEDS: Acetaminophen 325 MG Tab PO SCH ×4 (03:19→21:00)
[2021-01-20] MEDS: Albuterol/Ipratropium 3.0-0.5 MG/3 ML Neb Soln INH PRN ×3 (06:10→18:39)
[2021-01-20] MEDS: Albuterol/Ipratropium 3.0-0.5 MG/3 ML Neb Soln INH SCH ×3 (06:59→21:39)
[2021-01-20] MEDS: Docusate Sodium 100 MG Cap PO SCH ×2 (08:59→20:58)
[2021-01-20] MEDS: Bisacodyl 5 MG Tab PO SCH ×2 (08:59→20:58)
[2021-01-20] MEDS ORDERED: amLODIPine 5 MG Tab PO SCH (09:00)
[2021-01-20] MEDS ORDERED: Clopidogrel 75 MG Tab PO SCH (09:00)
[2021-01-20] MEDS ORDERED: Aspirin 81 MG Tab.EC PO SCH (09:00)
[2021-01-20] MEDS ORDERED: Citalopram 20 MG Tab PO SCH (09:00)
[2021-01-20] MEDS ORDERED: Metoprolol Succinate 50 MG Tab.ER PO SCH (09:00)
--- NOTE | 2021-01-20 09:01 | PN ---
DATE OF SERVICE: 01/20/2021 SUBJECTIVE: Eleonora is postoperative day #1. She is alert and orientated. She did have some difficulty during the night with O2 saturations at 88% and nursing staff reported she did have some rales. Her urine output was marginal, so she was given some Lasix. Her urine output totaled for postop period was 850 and her oral intake was 600. She reports pain is controlled and vital signs otherwise have been stable. She remains to be on 2 to 3 L of O2. Has been up walking and sitting in the chair. REVIEW OF SYSTEMS: Remainder of review of systems negative for any pertinent positives and negatives. OBJECTIVE: GENERAL: Eleonora Batista is a pleasant 65-year-old female. She is alert and orientated. Color good. VITAL SIGNS: TPR 97.6, 65, 16, blood pressure 152/69. HEENT: Negative. NECK: Supple. HEART: Regular rate and rhythm. LUNGS: Clear this morning. ABDOMEN: Dressing dry and intact. EXTREMITIES: Without peripheral edema. ASSESSMENT: Exploratory laparotomy with lysis of adhesions and repair of hernia with mesh, placement of Vicryl mesh. Date of procedure: 01/19/2021. Surgeon: Srikanth Garcia MD. POSTOPERATIVE DIAGNOSES: 1. Multifocal recurrent incarcerated incisional hernia. 2. Incarcerated umbilical hernia. 3. Extensive intraabdominal adhesions. PLAN: 1. Discontinue HIGH CLIMBER. 2. Dilaudid 2 to 4 mg every 4 hours p.r.n. pain. 3. Full liquid diet. 4. Saline lock IV. 5. Discontinue Mcintosh. 6. Colace 100 mg p.o. b.i.d. 7. Dulcolax 10 mg oral tablets b.i.d. 8. Encouraged use of Acapella and incentive spirometer, walk 6 times daily. 9. We will evaluate p.r.n. or in a.m. Cynthia Smith PA-C /[id number]
[2021-01-20] MEDS: HYDROmorphone 2 MG Tab PO PRN ×2 (09:43→13:42)
[2021-01-20] MEDS ORDERED: Sodium Chloride 0.9% 10 ML Syringe IV PRN (10:24)
[2021-01-20] MEDS ORDERED: Furosemide 40 MG/4 ML VIAL IVPUSH ONE (20:44)
[2021-01-20] MEDS ORDERED: Furosemide 40 MG/4 ML VIAL ONE (20:49)
[2021-01-20] MEDS: Citalopram 20 MG Tab PO SCH (20:58)
[2021-01-20] MEDS: Metoprolol Succinate 50 MG Tab.ER PO SCH (20:58)
[2021-01-20] MEDS: atorvaSTATin 20 MG Tab PO SCH (20:58)
[2021-01-20] MEDS: Clopidogrel 75 MG Tab PO SCH (20:58)
[2021-01-20] MEDS: amLODIPine 5 MG Tab PO SCH (20:59)
[2021-01-20] MEDS: Aspirin 81 MG Tab.EC PO SCH (20:59)
[2021-01-20] MEDS: LORazepam 2 MG/ML SDV IVPUSH PRN (21:25)
--- NOTE | 2021-01-20 21:29 | PCM.CONS ---
H&P History of Present Illness - General Date of Service: 01/20/21 Admit Problem/Dx: Admission Diagnosis/Problem Admission Diagnosis/Problem Hernia repair Source of Information: Patient, Old Records, Provider, RN Notes Reviewed History Limitations: Reports: No Limitations - History of Present Illness Initial Comments - Free Text/Narative: Ms. Batista is a 65-year-old woman who I been asked to see by Anders Smith concerning postoperative hypoxia and respiratory compromise. She underwent incisional hernia repair with mesh yesterday by Dr. Garcia. She did have some respiratory compromise during the night and did receive a dose of furosemide. This afternoon and evening has had progressive increase in respiratory rate and has required progressive increase in supplemental oxygen to maintain adequate saturations. She does have known underlying COPD and a [id number] smoking history. She had experienced similar respiratory compromise 3 years ago with repair of incisional hernia. She currently denies chest pain or pressure but does have significant anxiety which seems to be exacerbating shortness of breath and respiratory compromise. - Related Data Allergies/Adverse Reactions: Allergies Allergy/AdvReac Type Severity Reaction Status Date / Time oxycodone Allergy Severe Anaphylactic Verified 01/19/21 11:30 Shock codeine Allergy Rash Verified 01/19/21 08:24 hydrocodone Allergy Rash Verified 01/19/21 08:24 penicillin Allergy Rash Verified 01/19/21 08:24 erythromycin base AdvReac Nausea Verified 01/19/21 08:24 tetracycline AdvReac Nausea Verified 01/19/21 08:24 Home Medications: Home Meds Clopidogrel [Plavix] 75 mg PO DAILY 09/17/18 [History] amLODIPine Besylate [Norvasc] 10 mg PO DAILY 09/17/18 [History] atorvaSTATin [Lipitor] 40 mg PO BEDTIME 09/17/18 [History] Aspirin [Halfprin] 81 mg PO BEDTIME 09/19/18 [History] Ibuprofen [Advil] 400 mg PO Q6HR 10/08/18 [History] Acetaminophen [Tylenol Extra Strength] 1,000 mg PO Q6H tablet 12/22/18 [Rx] Lactobacillus Rhamnosus GG [Culturelle] 1 cap PO BID #60 cap 12/22/18 [Rx] Metoprolol Succinate [Toprol Xl] 50 mg PO DAILY 01/17/21 [History] hydrOXYzine pamoate [Hydroxyzine Pamoate] 25 mg PO TID PRN 01/17/21 [History] amLODIPine [Norvasc] 10 mg PO DAILY 01/19/21 [History] Past Medical History HEENT History: Reports: Impaired Vision Cardiovascular History: Reports: Blood Clots/VTE/DVT, CAD, Hypertension Other Cardiovascular History: DVT in 2012 with coumadin therapy.Presently taking plavix off x 7 days. 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 Neurological History: Reports: TIA Psychiatric History: Reports: Depression Hematologic History: Reports: Anemia, Blood Transfusion(s), Iron Deficiency Dermatologic History: Reports: None Other Dermatologic History: right rash - Infectious Disease History Infectious Disease History: Reports: Chicken Pox, Measles - Past Surgical History HEENT Surgical History: Reports: None Cardiovascular Surgical History: Reports: None Respiratory Surgical History: Reports: None GI Surgical History: Reports: Colonoscopy, Hernia Repair/Other, Small Bowel, Other (See Below) Other GI Surgeries/Procedures: very eventful hernia repair Female Surgical History: Reports: Section, Hysterectomy Neurological Surgical History: Reports: None Musculoskeletal Surgical History: Reports: Ganglion Cyst Social & Family History - Family History Family Medical History: No Pertinent Family History - Tobacco Use Tobacco Use Status *Q: Former Tobacco User Used Tobacco, but Quit: Yes Month/Year Tobacco Last Used: 2017 - Caffeine Use Caffeine Use: Reports: Coffee - Recreational Drug Use Recreational Drug Use: No H&P Review of Systems - Review of Systems: Review Of Systems: See Below Pulmonary: Reports: Shortness of Breath. Denies: Wheezing, Pleuritic Chest Pain, Cough, Sputum, Hemoptysis Cardiovascular: Reports: Dyspnea on Exertion. Denies: Chest Pain, Palpitations, Orthopnea, PND, Edema, Lightheadedness Gastrointestinal: Reports: Abdominal Pain. Denies: Difficulty Swallowing, Distension, Hematemesis, Hematochezia, Melena, Nausea, Vomiting Genitourinary: Reports: No Symptoms Musculoskeletal: Reports: No Symptoms Exam - Exam Exam: See Below - Vital Signs Vital Signs: Last Vital Signs Temp 99.5 F 01/20/21 19:17 Pulse 98 01/20/21 20:58 Resp 21 H 01/20/21 19:17 BP 167/67 H 01/20/21 20:59 Pulse Ox 86 L 01/20/21 20:14 Weight: 193 lb - Exam Neck: Supple, Trachea Midline, +2 Carotid Pulse wo Bruit Lungs: Clear to Auscultation, Decreased Breath Sounds. No: Rales, Rhonchi, Wheezing Cardiovascular: Regular Rhythm, Normal S1, Normal S2, Tachycardia. No: Systolic Murmur, Diastolic Murmur GI/Abdominal Exam: Soft, No Organomegaly, Tender. No: Distended, Guarding, Rigid, Rebound Extremities: Non-Tender, No Pedal Edema Neuro Extensive - Mental Status: Alert, Oriented x3, Normal Mood/Affect, Normal Cognition, Memory Intact Psychiatric: Anxious, Agitated - Patient Data Lab Results Last 24 hrs: Laboratory Results - last 24 hr 01/20/21 01/20/21 01/20/21 Range/Units 20:04 20:04 20:05 WBC 16.5 H (4.5-11.0) K/uL RBC 3.62 (3.30-5.50) M/uL Hgb 10.2 L (12.0-15.0) g/dL Hct 33.3 L (36.0-48.0) % MCV 92 (80-98) fL MCH 28 (27-31) pg MCHC 31 L (32-36) % Plt Count 290 (150-400) K/uL Neut % (Auto) 84 H (36-66) % Lymph % (Auto) 11 L (24-44) % Anson % (Auto) 5 (2-6) % Eos % (Auto) 0 L (2-4) % Baso % (Auto) 0 (0-1) % Sodium 137 L (140-148) mmol/L Potassium 3.5 L (3.6-5.2) mmol/L Chloride 98 L (100-108) mmol/L Carbon Dioxide 25 (21-32) mmol/L Anion Gap 17.5 H (5.0-14.0) mmol/L BUN 21 H (7-18) mg/dL Creatinine 0.8 (0.6-1.0) mg/dL Est Cr Clr Drug Dosing 64.66 mL/min Estimated GFR (MDRD) > 60 (>60) Glucose 137 H (74-106) mg/dL Calcium 8.6 (8.5-10.1) mg/dL Troponin I < 0.017 (0.000-0.056) ng/mL Result Diagrams: 01/20/21 20:04 01/20/21 20:04 Sepsis Event Note - Evaluation Sepsis Screening Result: No Definite Risk - Focused Exam Vital Signs: Vital Signs Temp Temp Temp Pulse Pulse Resp BP 01/20/21 20:59 167/67 H 01/20/21 20:58 98 167/67 H 01/20/21 20:14 01/20/21 19:17 99.5 F 94 21 H 01/20/21 18:00 01/20/21 16:01 98.3 F 76 24 H 01/20/21 13:14 77 01/20/21 12:55 01/20/21 10:44 98.2 F 76 20 01/20/21 10:37 98.2 F BP Pulse Ox 01/20/21 20:59 01/20/21 20:58 01/20/21 20:14 86 L 01/20/21 19:17 176/75 H 83 L 01/20/21 18:00 92 L 01/20/21 16:01 183/77 H 88 L 01/20/21 13:14 01/20/21 12:55 88 L 01/20/21 10:44 148/75 H 90 L 01/20/21 10:37 Consult PN Assessment/Plan Procedures: Procedures ASSAY OF LIPASE (07/19/15) CHEST X-RAY 2VW FRONTAL&LATL (11/02/17) COMPLETE CBC AUTOMATED (12/11/18) COMPLETE CBC W/AUTO DIFF WBC (10/10/17) COMPREHEN METABOLIC PANEL (10/10/17) CT ABD & PELV W/CONTRAST (12/27/16) CT ABD & PELVIS W/O CONTRAST (12/11/18) CT HEAD/BRAIN W/O DYE (10/10/17) CT LOWER EXTREMITY W/O DYE (03/24/14) ELECTROCARDIOGRAM TRACING (10/10/17) EMERGENCY DEPT VISIT (12/11/18) EMERGENCY DEPT VISIT (11/02/17) EMERGENCY DEPT VISIT (07/01/16) EMERGENCY DEPT VISIT (08/11/15) EMERGENCY DEPT VISIT (07/19/15) EXTREMITY STUDY (10/23/13) FLUORO EXAM OF G/COLON TUBE (11/29/18) HYDRATE IV INFUSION ADD-ON (07/19/15) INFLUENZA ASSAY W/OPTIC (11/02/17) METABOLIC PANEL TOTAL CA (12/11/18) MRI CHEST SPINE W/O DYE (05/10/14) NEG PRESS WOUND TX </=50 CM (10/24/18) PT EVALUATION (06/30/14) RBC SED RATE NONAUTOMATED (10/10/17) ROUTINE VENIPUNCTURE (12/11/18) THER/PROPH/DIAG INJ IV PUSH (07/19/15) THER/PROPH/DIAG INJ SC/IM (07/01/16) THERAPEUTIC EXERCISES (06/30/14) TTE W/DOPPLER COMPLETE (10/07/17) TX/PRO/DX INJ NEW DRUG ADDON (07/19/15) URINALYSIS AUTO W/SCOPE (12/11/18) X-RAY EXAM L-2 SPINE 4/>VWS (07/01/16) Problem List Initiated/Reviewed/Updated: Yes My Orders Last 24 Hours: My Active Orders 01/20/21 19:28 Chest 2V [CR] Routine EKG 12 Lead [EK] Routine 01/20/21 19:29 EKG Documentation Completion [RC] ASDIRECTED 01/20/21 20:04 BLOOD GAS ARTERIAL [BG] Stat 01/20/21 20:48 Patient Status [ADT] Routine 01/20/21 21:03 RT End Tidal CO2 Monitoring [RC] ASDIRECTED LORazepam [Ativan] 0.5 mg IVPUSH Q4H PRN Pulse Oximetry Continuous Monitoring [OM.PC] Routine 01/21/21 05:00 Chest 1V Frontal [CR] Timed Plan: ASSESSMENT AND RECOMMENDATIONS ACUTE ON CHRONIC HYPOXIC RESPIRATORY FAILURE-multifactorial related to underlying COPD as well as recent surgery with hypoventilation secondary to abdominal pain and pain medications. There also does appear to be a component of fluid overload and evidence of pulmonary edema noted on chest x-ray. White blood cell count is elevated but I think this is more likely related to stress, no other evidence of active infection. -Noninvasive positive pressure ventilation -Lorazepam as needed for anxiety -Furosemide 40 mg IV now -Supplemental oxygen as needed -Patient refuses further attempts at arterial blood gases -Continuous pulse oximetry and end-tidal CO2 monitoring -Transfer to ICU -Repeat chest x-ray in a.m. COPD-no evidence of acute exacerbation at this time STATUS POST INCISIONAL HERNIA REPAIR -Postoperative care per surgical service Requesting Provider: VERENA Date Consult Requested: 01/20/21 Reason for Consult: Postoperative hypoxia Patient History Reviewed: Yes
[2021-01-21] MEDS: ceFAZolin 2 GM in Premix Bag 1 BAG IV SCH ×2 (00:05→08:58)
[2021-01-21] MEDS: LORazepam 2 MG/ML SDV IVPUSH PRN (01:22)
[2021-01-21] MEDS: Acetaminophen 325 MG Tab PO SCH ×4 (05:25→21:26)
[2021-01-21] MEDS: Albuterol/Ipratropium 3.0-0.5 MG/3 ML Neb Soln INH SCH ×3 (07:05→21:26)
[2021-01-21] MEDS ORDERED: Furosemide 40 MG/4 ML VIAL IVPUSH ONE (08:25)
[2021-01-21] MEDS: Bisacodyl 5 MG Tab PO SCH ×2 (09:06→21:25)
[2021-01-21] MEDS: Docusate Sodium 100 MG Cap PO SCH ×2 (09:06→21:25)
--- NOTE | 2021-01-21 09:12 | PN ---
DATE OF SERVICE: 01/21/2021 SUBJECTIVE: Last evening, 01/20/2021, Eleonora's respirations increased to 38, O2 was 84% on [address] Dr[address] Abran Castillo, hospitalist was called, and he was consulted. The patient was transferred to ICU. She is currently on the BiPAP this morning. She did state she was "okay." Vital signs afebrile, last temp was 98.1, and a heart rate was 73, blood pressure 175/74, respirations 22, and O2 by pulse oximetry 94%, and FiO2 was 35. Reports pain is controlled. Oral intake in the past 24 hours was 320. Urine output via Mcintosh catheter was 1625, that was re-placed on due to diuretics and accurate intake and output. Remainder of care is per Abran Castillo MD. OBJECTIVE: GENERAL: Eleonora Batista is a 65-year-old female. She opens her eyes and responds. VITAL SIGNS: As above. HEART: Regular rate and rhythm. LUNGS: Reveal rales in the right lower lobe. Left is negative. ABDOMEN: Incision dry and intact. EXTREMITIES: Without peripheral edema. ASSESSMENT: 1. Acute on chronic hypoxic respiratory failure. 2. Exploratory laparotomy with lysis of adhesions and repair of hernia with mesh placement of Vicryl mesh. Date of procedure: 01/19/2021. Surgeon: Srikanth Garcia MD. POSTOPERATIVE DIAGNOSES: 1. Multifocal recurrent incarcerated incisional hernia. 2. Incarcerated umbilical hernia. 3. Extensive intraabdominal adhesions. PLAN: 1. Continue cares per Abran Castillo MD. 2. We will evaluate p.r.n. or in the a.m. Cynthia Smith PA-C /[id number]
[2021-01-21] MEDS ORDERED: Potassium Chloride 20 MEQ Tab.ER PO ONE (10:00)
[2021-01-21] MEDS ORDERED: Benzocaine/Cetylpyridinium/Menthol Lozenge MUCMEM PRN (10:08)
--- NOTE | 2021-01-21 10:15 | PCM.CONSN ---
- General Info Date of Service: 01/21/21 Subjective Update: Ms. Batista has improved significantly since last night. She did use BiPAP through much of the night, this morning is on nasal cannula with adequate oxygenation. She has had a very good diuresis and improvement in hypoventilation with use of BiPAP. Anxiety has improved significantly and she appears much more comfortable this morning. Functional Status: Reports: Urinating - Review of Systems General: Reports: Weakness, Fatigue. Denies: Fever, Chills Pulmonary: Reports: Shortness of Breath. Denies: Pleuritic Chest Pain, Cough, Sputum, Hemoptysis, Wheezing Cardiovascular: Reports: Dyspnea on Exertion. Denies: Chest Pain, Palpitations, Orthopnea, PND, Edema, Lightheadedness Gastrointestinal: Reports: Abdominal Pain, Other (Passing gas). Denies: Difficulty Swallowing, Nausea, Vomiting Genitourinary: Reports: No Symptoms - Patient Data Vitals - Most Recent: Last Vital Signs Temp 98.1 F 01/21/21 08:00 Pulse 72 01/21/21 08:00 Resp 17 01/21/21 08:00 BP 171/70 H 01/21/21 08:00 Pulse Ox 94 L 01/21/21 08:00 Weight - Most Recent: 193 lb I&O - Last 24 Hours: Intake & Output 01/20/21 01/21/21 01/21/21 22:59 06:59 14:59 Intake Total 370 50 Output Total 1150 1625 Balance -780 -5321 Lab Results Last 24 Hours: Laboratory Results - last 24 hr 01/20/21 01/20/21 01/20/21 Range/Units 05:40 20:04 20:04 WBC 16.5 H (4.5-11.0) K/uL RBC 3.62 (3.30-5.50) M/uL Hgb 10.2 L (12.0-15.0) g/dL Hct 33.3 L (36.0-48.0) % MCV 92 (80-98) fL MCH 28 (27-31) pg MCHC 31 L (32-36) % Plt Count 290 (150-400) K/uL Neut % (Auto) 84 H (36-66) % Lymph % (Auto) 11 L (24-44) % Churchill % (Auto) 5 (2-6) % Eos % (Auto) 0 L (2-4) % Baso % (Auto) 0 (0-1) % Puncture Site Left radial ABG pH 7.491 H (7.350-7.450) ABG pCO2 37.0 (35.0-42.0) mmHg ABG pO2 66.6 L (75.0-100.0) mmHg ABG HCO3 28.0 H (22.0-26.0) mmol/L ABG Total CO2 25.7 H (21.0-25.0) mmol/L ABG O2 Saturation 93.1 L (95.0-98.0) % ABG O2 Content 12.7 L (15.0-23.0) %vol ABG Base Excess 4.8 mm/L ABG Hemoglobin 10.0 L (12.0-16.0) g/dL ABG Oxyhemoglobin 90.5 % ABG Carboxyhemoglobin 0.8 (0.0-1.6) % ABG Methemoglobin 2.0 % Julian Test Passed O2 Delivery Device Nasal cannula Sodium 137 L (140-148) mmol/L Potassium 3.5 L (3.6-5.2) mmol/L Chloride 98 L (100-108) mmol/L Carbon Dioxide 25 (21-32) mmol/L Anion Gap 17.5 H (5.0-14.0) mmol/L BUN 21 H (7-18) mg/dL Creatinine 0.8 (0.6-1.0) mg/dL Est Cr Clr Drug Dosing 64.66 mL/min Estimated GFR (MDRD) > 60 (>60) Glucose 137 H (74-106) mg/dL Calcium 8.6 (8.5-10.1) mg/dL Troponin I (0.000-0.056) ng/mL 01/20/21 01/21/21 01/21/21 Range/Units 20:05 05:40 08:25 WBC 14.5 H (4.5-11.0) K/uL RBC 3.49 (3.30-5.50) M/uL Hgb 9.9 L (12.0-15.0) g/dL Hct 31.3 L (36.0-48.0) % MCV 90 (80-98) fL MCH 28 (27-31) pg MCHC 32 (32-36) % Plt Count 280 (150-400) K/uL Neut % (Auto) 86 H (36-66) % Lymph % (Auto) 10 L (24-44) % Churchill % (Auto) 5 (2-6) % Eos % (Auto) 0 L (2-4) % Baso % (Auto) 0 (0-1) % Puncture Site ABG pH (7.350-7.450) ABG pCO2 (35.0-42.0) mmHg ABG pO2 (75.0-100.0) mmHg ABG HCO3 (22.0-26.0) mmol/L ABG Total CO2 (21.0-25.0) mmol/L ABG O2 Saturation (95.0-98.0) % ABG O2 Content (15.0-23.0) %vol ABG Base Excess mm/L ABG Hemoglobin (12.0-16.0) g/dL ABG Oxyhemoglobin % ABG Carboxyhemoglobin (0.0-1.6) % ABG Methemoglobin % Julian Test O2 Delivery Device Sodium 137 L (140-148) mmol/L Potassium 3.4 L (3.6-5.2) mmol/L Chloride 98 L (100-108) mmol/L Carbon Dioxide 30 (21-32) mmol/L Anion Gap 12.4 (5.0-14.0) mmol/L BUN 16 (7-18) mg/dL Creatinine 0.7 (0.6-1.0) mg/dL Est Cr Clr Drug Dosing 73.90 mL/min Estimated GFR (MDRD) > 60 (>60) Glucose 131 H (74-106) mg/dL Calcium 9.0 (8.5-10.1) mg/dL Troponin I < 0.017 (0.000-0.056) ng/mL Med Orders - Current: Current Medications Acetaminophen (Acetaminophen 325 Mg Tab) 650 mg PO Q6HR [facility] Last Admin: 01/21/21 09:06 Dose: 650 mg Documented by: Albuterol/Ipratropium (Albuterol/Ipratropium 3.0-0.5 Mg/3 Ml Neb Soln) 3 ml INH TIDRT [facility] Last Admin: 01/21/21 07:05 Dose: 3 ml Documented by: Albuterol/Ipratropium (Albuterol/Ipratropium 3.0-0.5 Mg/3 Ml Neb Soln) 3 ml INH ASDIRECTED PRN PRN Reason: BREATHING Last Admin: 01/20/21 18:39 Dose: 3 ml Documented by: Amlodipine Besylate (Amlodipine 5 Mg Tab) 10 mg PO BEDTIME [facility] Last Admin: 01/20/21 20:59 Dose: 10 mg Documented by: Aspirin (Aspirin 81 Mg Tab.Ec) 81 mg PO BEDTIME [facility] Last Admin: 01/20/21 20:59 Dose: 81 mg Documented by: Atorvastatin Calcium (Atorvastatin 20 Mg Tab) 40 mg PO BEDTIME [facility] Last Admin: 01/20/21 20:58 Dose: 40 mg Documented by: Benzocaine/Menthol (Benzocaine/Cetylpyridinium/Menthol Lozenge) 1 lozenge MUCMEM Q2H PRN PRN Reason: Other Bisacodyl (Bisacodyl 5 Mg Tab) 10 mg PO BID [facility] Last Admin: 01/21/21 09:06 Dose: 10 mg Documented by: Citalopram Hydrobromide (Citalopram 20 Mg Tab) 40 mg PO BEDTIME [facility] Last Admin: 01/20/21 20:58 Dose: 40 mg Documented by: Clopidogrel Bisulfate (Clopidogrel 75 Mg Tab) 75 mg PO BEDTIME [facility] Last Admin: 01/20/21 20:58 Dose: 75 mg Documented by: Cyclobenzaprine HCl (Cyclobenzaprine 10 Mg Tab) 10 mg PO Q8H PRN PRN Reason: Muscle Spasm Docusate Sodium (Docusate Sodium 100 Mg Cap) 100 mg PO BID [facility] Last Admin: 01/21/21 09:06 Dose: 100 mg Documented by: Hydromorphone HCl (Hydromorphone 2 Mg Tab) 2 - 4 mg PO Q4H PRN PRN Reason: Pain Last Admin: 01/20/21 13:42 Dose: 4 mg Documented by: Hydroxyzine HCl (Hydroxyzine Hcl 100 Mg/2 Ml Sdv) 100 mg IM Q4H PRN PRN Reason: pain Lorazepam (Lorazepam 2 Mg/Ml Sdv) 0.5 mg IVPUSH Q4H PRN PRN Reason: Anxiety Last Admin: 01/21/21 01:22 Dose: 0.5 mg Documented by: Metoprolol Succinate (Metoprolol Succinate 50 Mg Tab.Er) 50 mg PO BEDTIME [facility] Last Admin: 01/20/21 20:58 Dose: 50 mg Documented by: Naloxone HCl (Naloxone 0.4 Mg/Ml Sdv) 0.1 mg IVPUSH Q2M PRN PRN Reason: Respiratory Distress Ondansetron HCl (Ondansetron 4 Mg/2 Ml Sdv) 4 mg IVPUSH Q4H PRN PRN Reason: Nausea/Vomiting Sodium Chloride (Sodium Chloride 0.9% 10 Ml Syringe) 10 ml IV 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 Medications Acetaminophen (Acetaminophen 500 Mg Tab) 1,000 mg PO ONETIME ONE Stop: 01/19/21 07:31 Last Admin: 01/19/21 07:59 Dose: 1,000 mg Documented by: Albuterol/Ipratropium (Albuterol/Ipratropium 3.0-0.5 Mg/3 Ml Neb Soln) 3 ml NEB ONETIME ONE Stop: 01/19/21 08:41 Last Admin: 01/19/21 08:57 Dose: 3 ml Documented by: Amlodipine Besylate (Amlodipine 5 Mg Tab) 10 mg PO DAILY [facility] Last Admin: 01/19/21 21:31 Dose: 10 mg Documented by: Aspirin (Aspirin 81 Mg Tab.Ec) 81 mg PO DAILY [facility] Last Admin: 01/19/21 21:30 Dose: 81 mg Documented by: Bupivacaine HCl (Bupivacaine 0.5% 50 Ml Mdv) Confirm Administered Dose 50 ml .ROUTE .STK-MED ONE Stop: 01/19/21 08:40 Last Admin: 01/19/21 09:39 Dose: 20 ml Documented by: Citalopram Hydrobromide (Citalopram 20 Mg Tab) 40 mg PO DAILY [facility] Last Admin: 01/19/21 21:30 Dose: 40 mg Documented by: Clopidogrel Bisulfate (Clopidogrel 75 Mg Tab) 75 mg PO DAILY [facility] Last Admin: 01/19/21 21:38 Dose: 75 mg Documented by: Ropivacaine 43 ml/Dexamethasone 8 mg/Epinephrine HCl 0.4 mg/ Sodium Chloride 34.6 ml 0 ml NERVRT ASDIRECTED [facility] Last Admin: 01/19/21 09:38 Dose: 80 syringe Documented by: Dexamethasone (Dexamethasone 4 Mg/Ml Sdv) Confirm Administered Dose 4 mg .ROUTE .STK-MED ONE Stop: 01/19/21 07:03 Fentanyl (Fentanyl 250 Mcg/5 Ml Sdv) Confirm Administered Dose 250 mcg .ROUTE .STK-MED ONE Stop: 01/19/21 07:03 Fentanyl (Fentanyl 250 Mcg/5 Ml Sdv) Confirm Administered Dose 250 mcg .ROUTE .STK-MED ONE Stop: 01/19/21 09:56 Furosemide (Furosemide 20 Mg/2 Ml Vial) 10 mg IVPUSH DAILY [facility] Last Admin: 01/20/21 00:11 Dose: 10 mg Documented by: Furosemide (Furosemide 40 Mg/4 Ml Vial) 40 mg IVPUSH NOW ONE Stop: 01/20/21 20:45 Last Admin: 01/20/21 20:56 Dose: 40 mg Documented by: Furosemide (Furosemide 40 Mg/4 Ml Vial) Confirm Administered Dose 40 mg .ROUTE .STK-MED ONE Stop: 01/20/21 20:50 Last Admin: 01/20/21 20:57 Dose: Not Given Documented by: Furosemide (Furosemide 40 Mg/4 Ml Vial) 40 mg IVPUSH NOW ONE Stop: 01/21/21 08:26 Last Admin: 01/21/21 09:02 Dose: 40 mg Documented by: Glycopyrrolate (Glycopyrrolate 0.2 Mg/Ml 5 Ml Mdv) Confirm Administered Dose 1 mg .ROUTE .STK-MED ONE Stop: 01/19/21 07:03 Hydromorphone HCl (Hydromorphone/Normal Saline 15 Mg/30 Ml Delivery Lead) 0 mg IV ASDIRECTED PRN; Protocol PRN Reason: Pain Last Admin: 01/19/21 12:03 Dose: 0.3 mg Documented by: Ketamine HCl 50 mg/ Sodium (Chloride) 50 mls @ 17.1 mls/hr IV ASDIRECTED [facility] Cefazolin Sodium 2 gm/ Sodium (Chloride) 50 mls @ 100 mls/hr IV ONETIME ONE Stop: 01/19/21 10:29 Dextrose/Lactated Ringer's (Dextrose 5%-Lactated Ringers) 1,000 mls @ 100 mls/hr IV ASDIRECTED [facility] Last Admin: 01/19/21 08:00 Dose: 100 mls/hr Documented by: Cefazolin Sodium 2 gm/ Sodium (Chloride) 50 mls @ 100 mls/hr IV ONETIME ONE Stop: 01/19/21 08:59 Last Admin: 01/19/21 09:06 Dose: 100 mls/hr Documented by: Dextrose/Lactated Ringer's (Dextrose 5%-Lactated Ringers) 1,000 mls @ 100 mls/hr IV ASDIRECTED [facility] Last Admin: 01/20/21 00:04 Dose: 100 mls/hr Documented by: Cefazolin Sodium/Dextrose 2 gm (/ Premix) 50 mls @ 100 mls/hr IV Q8H [facility] Stop: 01/21/21 08:29 Last Admin: 01/21/21 08:58 Dose: 100 mls/hr Documented by: Ketamine HCl (Ketamine 500 Mg/5 Ml Mdv) 28 mg IV ASDIRECTED [facility] Lidocaine/Epinephrine (Lidocaine 1% With Epinephrine 1:100,000 50 Ml Mdv) Confirm Administered Dose 50 ml .ROUTE .STK-MED ONE Stop: 01/19/21 08:40 Last Admin: 01/19/21 09:40 Dose: 20 ml Documented by: Linezolid (Linezolid 600 Mg/300 Ml Bag) 600 mg IRR .STK-MED ONE Stop: 01/19/21 09:42 Last Admin: 01/19/21 09:41 Dose: 600 mg Documented by: Meropenem (Meropenem 500 Mg Sdv) Confirm Administered Dose 500 mg .ROUTE .STK- MED ONE Stop: 01/19/21 08:40 Last Admin: 01/19/21 09:40 Dose: 500 mg Documented by: Metoprolol Succinate (Metoprolol Succinate 50 Mg Tab.Er) 50 mg PO DAILY [facility] Last Admin: 01/19/21 21:33 Dose: 50 mg Documented by: Neostigmine Methylsulfate (Neostigmine Methylsulfate 1 Mg/Ml 5 Ml Syringe) Confirm Administered Dose 5 mg .ROUTE .STK-MED ONE Stop: 01/19/21 07:03 Ondansetron HCl (Ondansetron 4 Mg/2 Ml Sdv) Confirm Administered Dose 4 mg .ROUTE .STK-MED ONE Stop: 01/19/21 07:03 Potassium Chloride (Potassium Chloride 20 Meq Tab.Er) 40 meq PO ONETIME ONE Stop: 01/21/21 10:01 Propofol (Propofol 200 Mg/20 Ml Sdv) Confirm Administered Dose 200 mg .ROUTE .STK-MED ONE Stop: 01/19/21 07:03 Rocuronium [place] (Rocuronium 50 Mg/5 Ml Vial) Confirm Administered Dose 50 mg .ROUTE .STK-MED ONE Stop: 01/19/21 07:03 Rocuronium [place] (Rocuronium 50 Mg/5 Ml Vial) Confirm Administered Dose 50 mg .ROUTE .STK-MED ONE Stop: 01/19/21 10:43 - Exam Quality Assessment: Urine Catheter, DVT Prophylaxis General: Alert, Oriented, Cooperative, Moderate Distress Lungs: Clear to Auscultation, Normal Respiratory Effort Cardiovascular: Regular Rate, Regular Rhythm, No Murmurs GI/Abdominal Exam: Soft, No Organomegaly, Tender. No: Distended, Guarding, Rigid, Rebound Extremities: Non-Tender, No Pedal Edema Sepsis Event Note - Evaluation Sepsis Screening Result: Severe Sepsis Risk - Focused Exam Vital Signs: Vital Signs Temp Pulse Resp BP Pulse Ox 01/21/21 08:00 98.1 F 72 17 171/70 H 94 L 01/21/21 06:00 22 H 175/74 H 94 L 01/21/21 05:00 24 H 160/74 H 93 L 01/21/21 04:00 98.1 F 22 H 162/76 H 94 L 01/21/21 03:00 35 H 174/75 H 94 L 01/21/21 02:00 31 H 161/81 H 95 01/21/21 01:00 27 H 166/71 H 95 01/21/21 00:00 98 F 31 H 178/79 H 95 01/20/21 23:00 33 H 178/76 H 95 01/20/21 22:56 31 H 175/102 H 96 Consult PN Assessment/Plan Procedures: Procedures ASSAY OF LIPASE (07/19/15) CHEST X-RAY 2VW FRONTAL&LATL (11/02/17) COMPLETE CBC AUTOMATED (12/11/18) COMPLETE CBC W/AUTO DIFF WBC (10/10/17) COMPREHEN METABOLIC PANEL (10/10/17) CT ABD & PELV W/CONTRAST (12/27/16) CT ABD & PELVIS W/O CONTRAST (12/11/18) CT HEAD/BRAIN W/O DYE (10/10/17) CT LOWER EXTREMITY W/O DYE (03/24/14) ELECTROCARDIOGRAM TRACING (10/10/17) EMERGENCY DEPT VISIT (12/11/18) EMERGENCY DEPT VISIT (11/02/17) EMERGENCY DEPT VISIT (07/01/16) EMERGENCY DEPT VISIT (08/11/15) EMERGENCY DEPT VISIT (07/19/15) EXTREMITY STUDY (10/23/13) FLUORO EXAM OF G/COLON TUBE (11/29/18) HYDRATE IV INFUSION ADD-ON (07/19/15) INFLUENZA ASSAY W/OPTIC (11/02/17) METABOLIC PANEL TOTAL CA (12/11/18) MRI CHEST SPINE W/O DYE (05/10/14) NEG PRESS WOUND TX </=50 CM (10/24/18) PT EVALUATION (06/30/14) RBC SED RATE NONAUTOMATED (10/10/17) ROUTINE VENIPUNCTURE (12/11/18) THER/PROPH/DIAG INJ IV PUSH (07/19/15) THER/PROPH/DIAG INJ SC/IM (07/01/16) THERAPEUTIC EXERCISES (06/30/14) TTE W/DOPPLER COMPLETE (10/07/17) TX/PRO/DX INJ NEW DRUG ADDON (07/19/15) URINALYSIS AUTO W/SCOPE (12/11/18) X-RAY EXAM L-2 SPINE 4/>VWS (07/01/16) Problem List Initiated/Reviewed/Updated: Yes My Orders Last 24 Hours: My Active Orders 01/20/21 19:28 Chest 2V [CR] Routine EKG 12 Lead [EK] Routine 01/20/21 19:29 EKG Documentation Completion [RC] ASDIRECTED 01/20/21 20:48 Patient Status [ADT] Routine 01/20/21 21:03 RT End Tidal CO2 Monitoring [RC] ASDIRECTED LORazepam [Ativan] 0.5 mg IVPUSH Q4H PRN Pulse Oximetry Continuous Monitoring [OM.PC] Routine 01/20/21 23:41 Urinary Catheter Assessment [RC] Q12H 01/21/21 05:00 Chest 1V Frontal [CR] Timed 01/21/21 10:08 Benzocaine/Cetylpyrd/Menthol [Cepacol Sore Throat] 1 lozenge MUCMEM Q2H PRN 01/21/21 21:00 Insert Mcintosh Catheter [Insert Urinary Catheter] [OM.PC] Q24H 01/22/21 05:00 BASIC METABOLIC PANEL,BMP [CHEM] Timed CBC WITH AUTO DIFF [HEME] Timed MAGNESIUM [CHEM] Timed Plan: ASSESSMENT AND RECOMMENDATIONS ACUTE ON CHRONIC HYPOXIC RESPIRATORY FAILURE-multifactorial related to underlying COPD as well as recent surgery with hypoventilation secondary to abdominal pain and pain medications. There also does appear to be a component of fluid overload and evidence of pulmonary edema noted on chest x-ray. Improved since last night, less short of breath and anxious, good diuresis -Noninvasive positive pressure ventilation -Lorazepam as needed for anxiety -Furosemide 40 mg IV now -Supplemental oxygen as needed -Continuous pulse oximetry and end-tidal CO2 monitoring -Repeat chest x-ray in a.m. COPD-no evidence of acute exacerbation at this time STATUS POST INCISIONAL HERNIA REPAIR -Postoperative care per surgical service
[2021-01-21] MEDS: HYDROmorphone 2 MG Tab PO PRN (18:11)
[2021-01-21] MEDS: Clopidogrel 75 MG Tab PO SCH (21:24)
[2021-01-21] MEDS: amLODIPine 5 MG Tab PO SCH (21:25)
[2021-01-21] MEDS: atorvaSTATin 20 MG Tab PO SCH (21:25)
[2021-01-21] MEDS: Metoprolol Succinate 50 MG Tab.ER PO SCH (21:25)
[2021-01-21] MEDS: Citalopram 20 MG Tab PO SCH (21:25)
[2021-01-21] MEDS: Aspirin 81 MG Tab.EC PO SCH (21:26)
[2021-01-22] MEDS: Acetaminophen 325 MG Tab PO SCH ×4 (04:37→21:03)
[2021-01-22] MEDS: HYDROmorphone 2 MG Tab PO PRN ×3 (04:37→22:22)
[2021-01-22] MEDS: Albuterol/Ipratropium 3.0-0.5 MG/3 ML Neb Soln INH SCH ×3 (07:01→21:05)
[2021-01-22] MEDS ORDERED: Potassium Chloride 20 MEQ Tab.ER PO ONE ×2 (08:15→13:00)
[2021-01-22] MEDS ORDERED: Furosemide 40 MG/4 ML VIAL IVPUSH ONE (08:20)
--- NOTE | 2021-01-22 08:26 | PN ---
DATE OF SERVICE: 01/22/2021 SUBJECTIVE: Eleonora is a pleasant 65-year-old female. She had a BiPAP on between 9 and 10 p.m. last night until about 5 a.m. this morning and tolerated it well. This morning, she states she is feeling much better. She is on O2 2 L and her oxygen saturation is 93%. Pain is controlled. Oral intake 1720 on a full-liquid diet and urine output 2830 via Mcintosh catheter. She is on bowel stimulation. Has not had a bowel movement yet. Remainder of review of systems negative for any pertinent positives or negatives. OBJECTIVE: GENERAL: Eleonora Batista is a pleasant 65-year-old female. She is alert and orientated. VITAL SIGNS: TPR is 98.1, 63, 19. Blood pressure 126/69. HEENT: Negative. NECK: Supple. HEART: Regular rate and rhythm. LUNGS: Reveal rales in the bases. She is a little bit short of breath when talking. ABDOMEN: Dressing is dry and intact. Abdominal binder is on. EXTREMITIES: Without peripheral edema. ASSESSMENT: 1. Acute on chronic hypoxic respiratory failure. 2. Exploratory laparotomy with: a. Lysis of adhesions. b. Repair of hernia with mesh. c. Placement of Vicryl mesh. d. Date of procedure 01/19/2021, Srikanth Garcia MD. POSTOPERATIVE DIAGNOSES: 1. Multifocal recurrent incarcerated incisional hernia. 2. Incarcerated umbilical hernia. 3. Extensive intraabdominal adhesions. PLAN: 1. Regular diet. 2. Replace Aquacel dressing. 3. We will evaluate p.r.n. or in a.m. Cynthia Smith PA-C /[id number]
[2021-01-22] MEDS: Bisacodyl 5 MG Tab PO SCH ×2 (09:16→21:04)
[2021-01-22] MEDS: Docusate Sodium 100 MG Cap PO SCH ×2 (09:17→21:04)
--- NOTE | 2021-01-22 11:45 | PCM.CONSN ---
- General Info Date of Service: 01/22/21 Subjective Update: Ms. Batista has been stable over the last 24 hours, she has used the BiPAP while napping and also through much of the night. This morning he has good saturations on 2 L of oxygen via nasal cannula. Excellent diuresis over the past few days and she is feeling significantly improved. Functional Status: Reports: Tolerating Diet, Ambulating, Urinating - Review of Systems General: Reports: Weakness, Fatigue. Denies: Fever, Chills Pulmonary: Reports: No Symptoms Cardiovascular: Reports: No Symptoms Gastrointestinal: Reports: Abdominal Pain. Denies: Difficulty Swallowing, Hematochezia, Melena, Nausea, Vomiting - Patient Data Vitals - Most Recent: Last Vital Signs Temp 98.1 F 01/22/21 04:00 Pulse 70 01/21/21 21:25 Resp 19 01/22/21 06:00 BP 126/69 01/22/21 06:00 Pulse Ox 93 L 01/22/21 06:00 Weight - Most Recent: 193 lb I&O - Last 24 Hours: Intake & Output 01/21/21 01/22/21 01/22/21 22:59 06:59 14:59 Intake Total 1140 480 Output Total 190 742 7549 Balance 790 -120 -1480 Lab Results Last 24 Hours: Laboratory Results - last 24 hr 01/22/21 01/22/21 Range/Units 05:33 05:33 WBC 9.1 (4.5-11.0) K/uL RBC 3.45 (3.30-5.50) M/uL Hgb 9.8 L (12.0-15.0) g/dL Hct 31.5 L (36.0-48.0) % MCV 91 (80-98) fL MCH 28 (27-31) pg MCHC 31 L (32-36) % Plt Count 302 (150-400) K/uL Neut % (Auto) 73 H (36-66) % Lymph % (Auto) 19 L (24-44) % [place] % (Auto) 5 (2-6) % Eos % (Auto) 2 (2-4) % Baso % (Auto) 0 (0-1) % Sodium 142 (140-148) mmol/L Potassium 3.3 L (3.6-5.2) mmol/L Chloride 102 (100-108) mmol/L Carbon Dioxide 28 (21-32) mmol/L Anion Gap 15.3 H (5.0-14.0) mmol/L BUN 17 (7-18) mg/dL Creatinine 0.7 (0.6-1.0) mg/dL Est Cr Clr Drug Dosing 73.90 mL/min Estimated GFR (MDRD) > 60 (>60) Glucose 97 (74-106) mg/dL Calcium 8.7 (8.5-10.1) mg/dL Magnesium 2.4 (1.8-2.4) mg/dL Med Orders - Current: Current Medications Acetaminophen (Acetaminophen 325 Mg Tab) 650 mg PO Q6HR [facility] Last Admin: 01/22/21 09:18 Dose: 650 mg Documented by: Albuterol/Ipratropium (Albuterol/Ipratropium 3.0-0.5 Mg/3 Ml Neb Soln) 3 ml INH TIDRT [facility] Last Admin: 01/22/21 07:01 Dose: 3 ml Documented by: Albuterol/Ipratropium (Albuterol/Ipratropium 3.0-0.5 Mg/3 Ml Neb Soln) 3 ml INH ASDIRECTED PRN PRN Reason: BREATHING Last Admin: 01/20/21 18:39 Dose: 3 ml Documented by: Amlodipine Besylate (Amlodipine 5 Mg Tab) 10 mg PO BEDTIME [facility] Last Admin: 01/21/21 21:25 Dose: 10 mg Documented by: Aspirin (Aspirin 81 Mg Tab.Ec) 81 mg PO BEDTIME [facility] Last Admin: 01/21/21 21:26 Dose: 81 mg Documented by: Atorvastatin Calcium (Atorvastatin 20 Mg Tab) 40 mg PO BEDTIME [facility] Last Admin: 01/21/21 21:25 Dose: 40 mg Documented by: Benzocaine/Menthol (Benzocaine/Cetylpyridinium/Menthol Lozenge) 1 lozenge MUCMEM Q2H PRN PRN Reason: Other Bisacodyl (Bisacodyl 5 Mg Tab) 10 mg PO BID [facility] Last Admin: 01/22/21 09:16 Dose: 10 mg Documented by: Citalopram Hydrobromide (Citalopram 20 Mg Tab) 40 mg PO BEDTIME [facility] Last Admin: 01/21/21 21:25 Dose: 40 mg Documented by: Clopidogrel Bisulfate (Clopidogrel 75 Mg Tab) 75 mg PO BEDTIME [facility] Last Admin: 01/21/21 21:24 Dose: 75 mg Documented by: Cyclobenzaprine HCl (Cyclobenzaprine 10 Mg Tab) 10 mg PO Q8H PRN PRN Reason: Muscle Spasm Docusate Sodium (Docusate Sodium 100 Mg Cap) 100 mg PO BID [facility] Last Admin: 01/22/21 09:17 Dose: 100 mg Documented by: Hydromorphone HCl (Hydromorphone 2 Mg Tab) 2 - 4 mg PO Q4H PRN PRN Reason: Pain Last Admin: 01/22/21 04:37 Dose: 2 mg Documented by: Hydroxyzine HCl (Hydroxyzine Hcl 100 Mg/2 Ml Sdv) 100 mg IM Q4H PRN PRN Reason: pain Lorazepam (Lorazepam 2 Mg/Ml Sdv) 0.5 mg IVPUSH Q4H PRN PRN Reason: Anxiety Last Admin: 01/21/21 01:22 Dose: 0.5 mg Documented by: Metoprolol Succinate (Metoprolol Succinate 50 Mg Tab.Er) 50 mg PO BEDTIME [facility] Last Admin: 01/21/21 21:25 Dose: 50 mg Documented by: Naloxone HCl (Naloxone 0.4 Mg/Ml Sdv) 0.1 mg IVPUSH Q2M PRN PRN Reason: Respiratory Distress Ondansetron HCl (Ondansetron 4 Mg/2 Ml Sdv) 4 mg IVPUSH Q4H PRN PRN Reason: Nausea/Vomiting Potassium Chloride (Potassium Chloride 20 Meq Tab.Er) 40 meq PO ONETIME ONE Stop: 01/22/21 13:01 Sodium Chloride (Sodium Chloride 0.9% 10 Ml Syringe) 10 ml IV 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 Medications Acetaminophen (Acetaminophen 500 Mg Tab) 1,000 mg PO ONETIME ONE Stop: 01/19/21 07:31 Last Admin: 01/19/21 07:59 Dose: 1,000 mg Documented by: Albuterol/Ipratropium (Albuterol/Ipratropium 3.0-0.5 Mg/3 Ml Neb Soln) 3 ml NEB ONETIME ONE Stop: 01/19/21 08:41 Last Admin: 01/19/21 08:57 Dose: 3 ml Documented by: Amlodipine Besylate (Amlodipine 5 Mg Tab) 10 mg PO DAILY [facility] Last Admin: 01/19/21 21:31 Dose: 10 mg Documented by: Aspirin (Aspirin 81 Mg Tab.Ec) 81 mg PO DAILY [facility] Last Admin: 01/19/21 21:30 Dose: 81 mg Documented by: Bupivacaine HCl (Bupivacaine 0.5% 50 Ml Mdv) Confirm Administered Dose 50 ml .ROUTE .STK-MED ONE Stop: 01/19/21 08:40 Last Admin: 01/19/21 09:39 Dose: 20 ml Documented by: Citalopram Hydrobromide (Citalopram 20 Mg Tab) 40 mg PO DAILY [facility] Last Admin: 01/19/21 21:30 Dose: 40 mg Documented by: Clopidogrel Bisulfate (Clopidogrel 75 Mg Tab) 75 mg PO DAILY [facility] Last Admin: 01/19/21 21:38 Dose: 75 mg Documented by: Ropivacaine 43 ml/Dexamethasone 8 mg/Epinephrine HCl 0.4 mg/ Sodium Chloride 34.6 ml 0 ml NERVRT ASDIRECTED [facility] Last Admin: 01/19/21 09:38 Dose: 80 syringe Documented by: Dexamethasone (Dexamethasone 4 Mg/Ml Sdv) Confirm Administered Dose 4 mg .ROUTE .STK-MED ONE Stop: 01/19/21 07:03 Fentanyl (Fentanyl 250 Mcg/5 Ml Sdv) Confirm Administered Dose 250 mcg .ROUTE .STK-MED ONE Stop: 01/19/21 07:03 Fentanyl (Fentanyl 250 Mcg/5 Ml Sdv) Confirm Administered Dose 250 mcg .ROUTE .STK-[facility] ONE Stop: 01/19/21 09:56 Furosemide (Furosemide 20 Mg/2 Ml Vial) 10 mg IVPUSH DAILY [facility] Last Admin: 01/20/21 00:11 Dose: 10 mg Documented by: Furosemide (Furosemide 40 Mg/4 Ml Vial) 40 mg IVPUSH NOW ONE Stop: 01/20/21 20:45 Last Admin: 01/20/21 20:56 Dose: 40 mg Documented by: Furosemide (Furosemide 40 Mg/4 Ml Vial) Confirm Administered Dose 40 mg .ROUTE .STK-MED ONE Stop: 01/20/21 20:50 Last Admin: 01/20/21 20:57 Dose: Not Given Documented by: Furosemide (Furosemide 40 Mg/4 Ml Vial) 40 mg IVPUSH NOW ONE Stop: 01/21/21 08:26 Last Admin: 01/21/21 09:02 Dose: 40 mg Documented by: Furosemide (Furosemide 40 Mg/4 Ml Vial) 40 mg IVPUSH NOW ONE Stop: 01/22/21 08:21 Last Admin: 01/22/21 09:20 Dose: 40 mg Documented by: Glycopyrrolate (Glycopyrrolate 0.2 Mg/Ml 5 Ml Mdv) Confirm Administered Dose 1 mg .ROUTE .STK-MED ONE Stop: 01/19/21 07:03 Hydromorphone HCl (Hydromorphone/Normal Saline 15 Mg/30 Ml Culturist) 0 mg IV ASDIRECTED PRN; Protocol PRN Reason: Pain Last Admin: 01/19/21 12:03 Dose: 0.3 mg Documented by: Ketamine HCl 50 mg/ Sodium (Chloride) 50 mls @ 17.1 mls/hr IV ASDIRECTED [facility] Cefazolin Sodium 2 gm/ Sodium (Chloride) 50 mls @ 100 mls/hr IV ONETIME ONE Stop: 01/19/21 10:29 Dextrose/Lactated Ringer's (Dextrose 5%-Lactated Ringers) 1,000 mls @ 100 mls/hr IV ASDIRECTED [facility] Last Admin: 01/19/21 08:00 Dose: 100 mls/hr Documented by: Cefazolin Sodium 2 gm/ Sodium (Chloride) 50 mls @ 100 mls/hr IV ONETIME ONE Stop: 01/19/21 08:59 Last Admin: 01/19/21 09:06 Dose: 100 mls/hr Documented by: Dextrose/Lactated Ringer's (Dextrose 5%-Lactated Ringers) 1,000 mls @ 100 mls/hr IV ASDIRECTED [facility] Last Admin: 01/20/21 00:04 Dose: 100 mls/hr Documented by: Cefazolin Sodium/Dextrose 2 gm (/ Premix) 50 mls @ 100 mls/hr IV Q8H [facility] Stop: 01/21/21 08:29 Last Admin: 01/21/21 08:58 Dose: 100 mls/hr Documented by: Ketamine HCl (Ketamine 500 Mg/5 Ml Mdv) 28 mg IV ASDIRECTED [facility] Lidocaine/Epinephrine (Lidocaine 1% With Epinephrine 1:100,000 50 Ml Mdv) Confirm Administered Dose 50 ml .ROUTE .STK-MED ONE Stop: 01/19/21 08:40 Last Admin: 01/19/21 09:40 Dose: 20 ml Documented by: Linezolid (Linezolid 600 Mg/300 Ml Bag) 600 mg IRR .STK-MED ONE Stop: 01/19/21 09:42 Last Admin: 01/19/21 09:41 Dose: 600 mg Documented by: Meropenem (Meropenem 500 Mg Sdv) Confirm Administered Dose 500 mg .ROUTE .STK- MED ONE Stop: 01/19/21 08:40 Last Admin: 01/19/21 09:40 Dose: 500 mg Documented by: Metoprolol Succinate (Metoprolol Succinate 50 Mg Tab.Er) 50 mg PO DAILY [facility] Last Admin: 01/19/21 21:33 Dose: 50 mg Documented by: Neostigmine Methylsulfate (Neostigmine Methylsulfate 1 Mg/Ml 5 Ml Syringe) Confirm Administered Dose 5 mg .ROUTE .STK-MED ONE Stop: 01/19/21 07:03 Ondansetron HCl (Ondansetron 4 Mg/2 Ml Sdv) Confirm Administered Dose 4 mg .ROUTE .STK-MED ONE Stop: 01/19/21 07:03 Potassium Chloride (Potassium Chloride 20 Meq Tab.Er) 40 meq PO ONETIME ONE Stop: 01/21/21 10:01 Last Admin: 01/21/21 10:36 Dose: 40 meq Documented by: Potassium Chloride (Potassium Chloride 20 Meq Tab.Er) 40 meq PO ONETIME ONE Stop: 01/22/21 08:16 Last Admin: 01/22/21 09:23 Dose: 40 meq Documented by: Propofol (Propofol 200 Mg/20 Ml Sdv) Confirm Administered Dose 200 mg .ROUTE .STK-MED ONE Stop: 01/19/21 07:03 Rocuronium [place] (Rocuronium 50 Mg/5 Ml Vial) Confirm Administered Dose 50 mg .ROUTE .STK-MED ONE Stop: 01/19/21 07:03 Rocuronium [place] (Rocuronium 50 Mg/5 Ml Vial) Confirm Administered Dose 50 mg .ROUTE .STK-MED ONE Stop: 01/19/21 10:43 - Exam Quality Assessment: DVT Prophylaxis General: Alert, Oriented, Cooperative, Mild Distress Lungs: Clear to Auscultation, Normal Respiratory Effort, Decreased Breath Sounds. No: Rales, Rhonchi, Wheezing Cardiovascular: Regular Rate, Regular Rhythm, No Murmurs GI/Abdominal Exam: Soft, No Organomegaly, Tender. No: Distended, Guarding, Rigid, Rebound Extremities: Non-Tender, No Pedal Edema Sepsis Event Note - Evaluation Sepsis Screening Result: No Definite Risk - Focused Exam Vital Signs: Vital Signs Temp Resp BP Pulse Ox 01/22/21 06:00 19 126/69 93 L 01/22/21 04:00 98.1 F 22 H 132/65 95 01/22/21 02:00 133/57 L 01/22/21 00:00 96.9 F 125/51 L Consult PN Assessment/Plan Procedures: Procedures ASSAY OF LIPASE (07/19/15) CHEST X-RAY 2VW FRONTAL&LATL (11/02/17) COMPLETE CBC AUTOMATED (12/11/18) COMPLETE CBC W/AUTO DIFF WBC (10/10/17) COMPREHEN METABOLIC PANEL (10/10/17) CT ABD & PELV W/CONTRAST (12/27/16) CT ABD & PELVIS W/O CONTRAST (12/11/18) CT HEAD/BRAIN W/O DYE (10/10/17) CT LOWER EXTREMITY W/O DYE (03/24/14) ELECTROCARDIOGRAM TRACING (10/10/17) EMERGENCY DEPT VISIT (12/11/18) EMERGENCY DEPT VISIT (11/02/17) EMERGENCY DEPT VISIT (07/01/16) EMERGENCY DEPT VISIT (08/11/15) EMERGENCY DEPT VISIT (07/19/15) EXTREMITY STUDY (10/23/13) FLUORO EXAM OF G/COLON TUBE (11/29/18) HYDRATE IV INFUSION ADD-ON (07/19/15) INFLUENZA ASSAY W/OPTIC (11/02/17) METABOLIC PANEL TOTAL CA (12/11/18) MRI CHEST SPINE W/O DYE (05/10/14) NEG PRESS WOUND TX </=50 CM (10/24/18) PT EVALUATION (06/30/14) RBC SED RATE NONAUTOMATED (10/10/17) ROUTINE VENIPUNCTURE (12/11/18) THER/PROPH/DIAG INJ IV PUSH (07/19/15) THER/PROPH/DIAG INJ SC/IM (07/01/16) THERAPEUTIC EXERCISES (06/30/14) TTE W/DOPPLER COMPLETE (10/07/17) TX/PRO/DX INJ NEW DRUG ADDON (07/19/15) URINALYSIS AUTO W/SCOPE (12/11/18) X-RAY EXAM L-2 SPINE 4/>VWS (07/01/16) Problem List Initiated/Reviewed/Updated: Yes My Orders Last 24 Hours: My Active Orders 01/22/21 05:00 Chest 1V Frontal [CR] Timed 01/22/21 11:33 Patient Status [ADT] Routine 01/22/21 11:35 Remove Mcintosh Catheter [Urinary Catheter Removal] [RC] Per Unit Routine 01/22/21 13:00 Potassium Chloride [Klor-Con M20] 40 meq PO ONETIME ONE 01/23/21 05:00 BASIC METABOLIC PANEL,BMP [CHEM] Timed Plan: ASSESSMENT AND RECOMMENDATIONS ACUTE ON CHRONIC HYPOXIC RESPIRATORY FAILURE-multifactorial related to underlying COPD as well as recent surgery with hypoventilation secondary to abdominal pain and pain medications. There also does appear to be a component of fluid overload and evidence of pulmonary edema noted on chest x-ray. Excellent improvement over the last 36 hours, very good diuresis last 2 days. -Lorazepam as needed for anxiety -Furosemide 40 mg IV today, reassess in a.m. -Supplemental oxygen as needed COPD-no evidence of acute exacerbation at this time STATUS POST INCISIONAL HERNIA REPAIR -Postoperative care per surgical service
[2021-01-22] MEDS: Clopidogrel 75 MG Tab PO SCH (21:03)
[2021-01-22] MEDS: Citalopram 20 MG Tab PO SCH (21:03)
[2021-01-22] MEDS: amLODIPine 5 MG Tab PO SCH (21:04)
[2021-01-22] MEDS: atorvaSTATin 20 MG Tab PO SCH (21:04)
[2021-01-22] MEDS: Aspirin 81 MG Tab.EC PO SCH (21:04)
[2021-01-22] MEDS: Metoprolol Succinate 50 MG Tab.ER PO SCH (21:04)
[2021-01-23] MEDS: Acetaminophen 325 MG Tab PO SCH ×2 (03:25→09:38)
[2021-01-23] MEDS: Albuterol/Ipratropium 3.0-0.5 MG/3 ML Neb Soln INH SCH (06:59)
[2021-01-23 07:20] VITALS: BP 158/85; PULSE 67
--- NOTE | 2021-01-23 08:54 | DISCH ---
ADMISSION DIAGNOSES: 1. Multifocal recurrent incisional hernia. 2. Umbilical hernia. 3. Chronic obstructive pulmonary disease. 4. Lumbar disk disease. 5. Diverticulitis. DISCHARGE DIAGNOSES: 1. Acute on chronic hypoxic respiratory failure. 2. Exploratory laparotomy with: a. Lysis of adhesions. b. Repair of hernia with mesh. c. Placement of Vicryl mesh. Date of procedure 01/19/2021. Surgeon, Srikanth Garcia MD. POSTOPERATIVE DIAGNOSES: 1. Multifocal recurrent incarcerated incisional hernia. 2. Incarcerated umbilical hernia. 3. Extensive intraabdominal adhesions. HISTORY: Eleonora Batista is a pleasant 65-year-old female who presented for repair of incisional hernias. After preoperative evaluation and discussion of possible risks and possible complications, she wishes to proceed with surgical procedure. HOSPITAL COURSE: Eleonora had her surgery on 01/19/2021. She had no operative complications with exception of the first postop night; her O2 saturations did decrease to 88%. Urine output was marginal. She was given Lasix 20 mg IV. Her urine increased and pain was controlled. She remained to be on 2 to 3 L of O2. On 01/20/2021, in the evening, her respirations did increase to 38, O2 was 84% on 12 L. Her IV was already saline locked. Abran Castillo MD, hospitalist was consulted. She was transferred to ICU and was given diuretics and put on a BiPAP. On 01/22/2021, she had a BiPAP on between 9 and 10 p.m. until 5 a.m., tolerated it well, was feeling better. O2 on per nasal cannula at 2 L and O2 sat is 93%. Eleonora was moved up to [facility] and she was weaned off her O2, and during the night slept well, had no oxygen on, was spot checked oximetry and she remained 93% and 94%. Pain is controlled. Oral intake adequate at 1300. Urine output 1480. She has had 100% of her breakfast, lunch and dinner and requesting to be discharged to home. PHYSICAL EXAMINATION: GENERAL: Eleonora Batista is a pleasant 65-year-old female. She is sitting up in the chair. Color good. VITAL SIGNS: Height 5 feet 4.9 inches. Weight is 193 pounds. BMI is 32. TPR 96.9, 62, 16. Blood pressure 158/70. HEENT: Negative. NECK: Supple. HEART: Regular rate and rhythm. LUNGS: Clear. Good air exchange. ABDOMEN: Aquacel dressings on. Abdominal binder is on. EXTREMITIES: Without peripheral edema. DISPOSITION: Discharged to home. CONDITION: Stable and improving. FOLLOWUP: Appointment with Srikanth Garcia MD on 02/01/2021 at 10 a.m. HOME MEDICATIONS: Dilaudid 2 to 4 mg p.o. q.6 hours p.r.n. pain, #28. She is to resume all of her home medications including hydroxyzine 25 mg p.o. t.i.d. p.r.n. anxiety, Lipitor 40 mg p.o. at bedtime, Norvasc 10 mg p.o. daily, Toprol-XL 50 mg p.o. daily, Culturelle 1 capsule p.o. b.i.d., Advil 400 mg p.o. q.6 hours p.r.n. pain, Plavix 75 mg p.o. daily, aspirin 81 mg p.o. at bedtime, Tylenol Extra Strength 1000 mg p.o. q.6 hours p.r.n. pain. DIET: Regular diet as tolerated. Drink 8 to 10 glasses of water a day. ACTIVITY: No lifting greater than 10 pounds for 6 weeks. Walk at least 6 times inside your home. Driving: Do not drive home within 6 hours of taking Dilaudid. Shower/bathing: May shower. Keep operative site clean and dry. Take off Aquacel dressing on , 01/26/2021 and wear abdominal binder for 6 weeks and then as tolerated. Notify provider if any fever, increased pain, swelling, redness, drainage, nausea, or vomiting. SPECIAL INSTRUCTIONS: Use incentive spirometer 10 times every hour for 1 week. /[id number]
--- NOTE | 2021-01-23 08:58 | CR ---
CHEST: Portable 01/20/2021 at 1956 CLINICAL HISTORY:SOB COMPARISON:2019 FINDINGS: The heart is enlarged. Pulmonary vascularity is cephalized. There are diffuse bilateral predominantly interstitial infiltrates. May be a small bilateral effusions. There are atherosclerotic changes in the aorta. Impression: Cardiomegaly with pulmonary vascular cephalization. Diffuse bilateral interstitial infiltrates. This most likely represents CHF. Diffuse pneumonitis superimposed over chronic changes is not excluded
--- NOTE | 2021-01-23 09:11 | CR ---
CHEST: Portable 01/21/2021 at 5:15 AM CLINICAL HISTORY:Hypoxia COMPARISON:01/20/2021 FINDINGS: There is patchy airspace disease in the left lower lobe. Mild prominence of the interstitial lung markings. This is diminished slightly since prior study. Heart is mildly enlarged. There are atherosclerotic changes in the aorta. IMPRESSION: Patchy left lower lobe infiltrate Diffuse interstitial infiltrate or edema has diminished since prior study.
[2021-01-23] MEDS: Bisacodyl 5 MG Tab PO SCH (09:38)
[2021-01-23] MEDS: Docusate Sodium 100 MG Cap PO SCH (09:38)
--- NOTE | 2021-01-23 10:51 | CR ---
CHEST: Portable 01/22/2021 and 5:29 AM CLINICAL HISTORY:Hypoxia COMPARISON:01/21/2021 FINDINGS: There is persistent patchy airspace disease at the left lung base. There is been some improvement in aeration when compared to prior study. There is persistent prominence the interstitial markings which is similar to the 01/21/2021 study. There are atherosclerotic changes in the aorta. IMPRESSION: Improved aeration at the left lung base Mild persistent interstitial prominence similar to prior study
--- NOTE | 2021-01-25 13:47 | OR ---
DATE OF PROCEDURE: 01/19/2021 SURGEON: Srikanth Garcia MD PREOPERATIVE DIAGNOSIS: Recurrent incisional hernia. POSTOPERATIVE DIAGNOSES: 1. Multifocal recurrent incarcerated incisional hernia. 2. Incarcerated umbilical hernia. 3. Extensive intraabdominal adhesions. OPERATIVE PROCEDURES: Exploratory laparotomy with lysis of adhesions and: 1. Repair of multifocal recurrent incarcerated incisional hernia with mesh (60130, [id number]). 2. Repair of incarcerated umbilical hernia with mesh (54776). 3. Placement of Vicryl mesh to limit recurrent adhesion formation between pelvic and abdominal wall and underlying viscera ([id number]). ANESTHESIA: General. ADVISOR TO COMMAND IN COMBAT: Cynthia Smith PA-C. INDICATIONS FOR PROCEDURE: This is a 65-year-old presenting with a recurrent incisional hernia, seems to be not entirely reducible. Plan is to proceed with open laparotomy with repair of the hernia with mesh. Potential risks including bleeding, infection, injury to underlying viscera, problems with mesh becoming infected or the hernia recurring were all reviewed, and the patient wishes to proceed. DETAILS OF PROCEDURE: The patient was taken to the operating room, placed in a supine position. After general endotracheal anesthesia was induced, a Mcintosh catheter was inserted, and the abdomen prepped and draped. Previous upper midline incision was then made removing a small amount of widened skin over the incision and carried down through the skin and subcutaneous tissue. The main area of the herniation located in the supraumbilical area was then encountered and the hernia sac dissected down circumferentially to the level of the fascia. The hernia was then opened and was noted to contain some incarcerated transverse colon and omentum. These were dissected free and we turned back to the peritoneal cavity and hernia sac excised. The patient had significant adhesions between the primarily the omentum and the anterior abdominal wall. These adhesions were all taken down until there was a good clearance of the abdominal wall in general. The patient was noted to have an incarcerated umbilical hernia as well with some incarcerated omentum within it. This was similarly reduced. Once that was cleared of adhesions, the patient was noted to have some smaller "syrian cheese" type herniation in the midline incision above the primary hernia. The primary force of the hernia in terms of the recurrence would appear to be from a lateral direction. Given this, a Ventralex hernia patch measuring 22.5 x 27.5 cm was selected after measuring out the defect and contouring the abdominal wall and soaked in antibiotic- containing saline solution at roughly 5 cm intervals along the mesh. 2-0 Vicryl sutures were placed on the polypropylene side of the mesh after being soaked in antibiotic- containing saline solution. Small stab wounds were placed where the suture would be pulled up, thus fixing the mesh and positioning well away from the fascial defects. Mesh was eventually oriented with a long axis in the transverse orientation given the apparent forces recurrence as noted above. The left side of the abdominal sutures were then pulled up through the abdominal wall and the mesh was then pulled up snugly against those areas. To limit recurrent adhesion formation, the Vicryl mesh was then placed underneath the existing mesh and from there down towards the pelvis and lower abdomen to limit recurrent adhesion formation. Remainder of the sutures were then pulled up which resulted in good coverage of both the umbilical as well as multifocal incisional hernia sites, and the mesh was then further secured on the underlying shelf with titanium tacking screws circumferentially. Additional irrigation was undertaken at this point. The midline fascia was then approximated with #2 Vicryl stitch, subcutaneous tissue with 2 layers of 3-0 and 4-0 Vicryl stitch and the skin with tim. Prior to closure, bilateral transverse abdominis plane blocks had been placed and the wound edges at the fascial level anesthetized with 1% lidocaine mixed with Marcaine as well, and the patient was taken to the recovery room in satisfactory condition. There were no other complications. Physician assistant district attorney, Cynthia Smith, played an essential role in assisting in this case helping to position the patient, retract structures as needed, as well as suturing and cutting sutures when indicated. Her presence improved the patient's safety and decreased operative time. Srikanth Garcia MD /[id number]
== END 2021-01-23 10:41 | disposition home or self-care (01) | DRG 353 ==
LOC: JP.SDS 07:29 → EDSTATUS 09:45 → JP.MS 13:13 → JP.ICU 01-20 20:44 → JP.MS 01-22 13:59
PROVIDERS: ADMIT Surgery; ATTEND Surgery
PROC: 0WUF0JZ Supplement Abdominal Wall with Synthetic Substitute, Open Approach (ICD-10-PCS; principal; 2021-01-19)
PROC: 3E0M05Z Introduction of Adhesion Barrier into Peritoneal Cavity, Open Approach (ICD-10-PCS; 2021-01-19)
PROC: 5A09457 Assistance with Respiratory Ventilation, 24-96 Consecutive Hours, Continuous Positive Airway Pressure (ICD-10-PCS; 2021-01-20)
DX: K43.0 Incisional hernia with obstruction, without gangrene (principal); J96.21 Acute and chronic respiratory failure with hypoxia; K57.92 Diverticulitis of intestine, part unspecified, without perforation or abscess without bleeding; K42.9 Umbilical hernia without obstruction or gangrene; J44.9 Chronic obstructive pulmonary disease, unspecified; M51.36 Other intervertebral disc degeneration, lumbar region; K66.0 Peritoneal adhesions (postprocedural) (postinfection); H54.7 Unspecified visual loss; I25.10 Atherosclerotic heart disease of native coronary artery without angina pectoris; I10 Essential (primary) hypertension; R32 Unspecified urinary incontinence; M19.90 Unspecified osteoarthritis, unspecified site; D50.9 Iron deficiency anemia, unspecified; Z88.5 Allergy status to narcotic agent; Z86.718 Personal history of other venous thrombosis and embolism; Z88.0 Allergy status to penicillin; Z88.1 Allergy status to other antibiotic agents; Z79.01 Long term (current) use of anticoagulants; Z79.82 Long term (current) use of aspirin; Z79.899 Other long term (current) drug therapy; Z86.73 Personal history of transient ischemic attack (TIA), and cerebral infarction without residual deficits; Z98.890 Other specified postprocedural states; Z90.710 Acquired absence of both cervix and uterus; Z87.891 Personal history of nicotine dependence
CPT/HCPCS: 36415; 51702; 71045; 71045-26; 71046; 71046-26; 80048; 80053; 82803; 83735; 83880; 84100; 84484; 85025; 85027; 94640; 94660; 94667; 94668; 94762; 99221; 99231; A9270-GY; C1713; C1781; J0171; J0690; J1100; J1170; J1940; J2020; J2060; J2185; J2405; J2704; J2710; J2795; J3010; J3490; J7121; J7620-GY